=== PATIENT | male | born 1965 | race Caucasian/White ===

== ENCOUNTER 2016-11-18 16:14 | Inpatient (IN) ==
--- NOTE | 2016-11-18 16:17 | Emergency Department Note ---
Disposition Clinical Impression: Upper abdominal pain, History of kidney cancer, Vomiting, Cachexia, Acute renal failure, Ileus, Dehydration Disposition: Admitted As Inpatient Referrals: NO,PCP [Primary Care Provider] - Forms: Work/School Release, ED Satisfaction Letter General Adult HPI - General Chief complaint: ED Abdominal Pain Stated complaint: abdominal pain Time Seen by Provider: 11/18/16 16:16 - History of Present Illness HPI Narrative: 51-year-old male reports emergency department from home via EMS. The patient reports he has severe upper abdominal pain bilaterally. He has a known history of kidney cancer. He has a history of colostomy placement. The patient denies any trauma. He has had a cough but no christiano shortness of breath or chest pain. There is no history of fever leg swelling or pain coughing up blood or syncope. The patient reports he has been vomiting nonbloody material. He describes severe abdominal pain. He reports he has not eaten much or drinking much in the last few days. He feels generally weak. There is no history of difficulty moving the arms or legs independently no history of slurred speech headache neck stiffness or rash. The patient is not known to be anticoagulated or diabetic. No other complaints noted. - Related Data Previous Rx's Medication Instructions Recorded Azithromycin [Zithromax] 1 applic PO DAILY #6 tablet 09/10/16 Benzonatate [Tessalon] 200 mg PO TID PRN #30 capsule 09/10/16 Promethazine [Phenergan] 25 mg PO Q8HR PRN #12 tablet 09/10/16 Allergies Allergy/AdvReac Type Severity Reaction Status Date / Time sulfamethoxazole Allergy Rash Verified 11/18/16 16:16 [From Bactrim] trimethoprim [From Bactrim] Allergy Rash Verified 11/18/16 16:16 All systems ED: reviewed and negative except as stated. Past Medical History - Past Medical History Medical history: Reports: cancer, other Surgical history: Reports: other Psychiatric history: Reports: depression - Social History Smoking Status: Current every day smoker Smokeless Tobacco Status: No Alcohol use: Reports: unknown Drug use: Reports: marijuana Physical Exam - General Limitations: no limitations General appearance: alert, cachectic, other (Tired and Prabha in appearance. Follows basic commands and answers general questions appropriately) - Head Head exam: atraumatic, normocephalic, normal inspection - Eye Eye exam: Present: normal appearance, PERRL, EOMI. Absent: scleral icterus, conjunctival injection, miosis, mydriasis - ENT ENT exam: normal exam, normal oropharynx, mucous membranes moist - Neck Neck exam: Present: normal inspection, full ROM, trachea midline. Absent: tenderness - Chest Chest inspection: Present: symmetric chest wall rise. Absent: tenderness - Respiratory Respiratory exam: Present: normal lung sounds bilaterally. Absent: respiratory distress, wheezes, stridor, accessory muscle use, prolonged expiratory phase - Cardiovascular Cardiovascular exam: Present: regular rate, normal rhythm, normal heart sounds - Abdominal Exam Abdominal exam: Present: soft, tenderness, other (Colostomy bag in place with normal-appearing stool.). Absent: distention, guarding, rebound, rigidity, pulsatile mass Abdominal tenderness: Present: RUQ, LUQ, severe - Extremities Exam Extremities exam: Present: normal inspection, full ROM, normal capillary refill. Absent: tenderness, pedal edema, joint swelling, calf tenderness - Expanded Lower Extremity Exam Lower leg exam: Absent: Homans' sign Neurovascular/Tendon exam: Present: normal capillary refill. Absent: motor deficit, sensory deficit, tendon deficit, extremity cold to touch, pallor - Back Exam Back exam: Present: normal inspection, full ROM. Absent: tenderness, CVA tenderness (R), CVA tenderness (L), vertebral tenderness - Neurological Exam Neurological exam: Present: alert, oriented X3, CN II-XII intact. Absent: motor sensory deficit - Psychiatric Psychiatric exam: Present: normal affect, normal mood - Skin Skin exam: Present: warm, dry, intact, normal color. Absent: rash, cyanosis, diaphoresis, erythema, pallor, mottled Course Vital Signs Temperature 98.1 F 11/18/16 16:17 Pulse Rate 106 11/18/16 16:17 Respiratory Rate 20 11/18/16 16:17 Blood Pressure 110/75 11/18/16 16:17 O2 Sat by Pulse Oximetry 96 11/18/16 16:17 Temperature 98.1 F 11/18/16 16:17 Pulse Rate 85 11/18/16 17:36 Respiratory Rate 20 11/18/16 17:36 Blood Pressure 115/77 11/18/16 17:36 O2 Sat by Pulse Oximetry 98 11/18/16 17:36 Oxygen Delivery Oxygen Delivery Room Air Medical Decision Making - [facility] Narrative Medical decision making narrative: The patient complains of upper abdominal pain and recurrent emesis, EKG unremarkable, troponin negative. Lipase and liver function tests show no emergent changes. The patient demonstrates severe dehydration and acute renal failure. He was given IV fluid antinausea and pain medications. Based on the patient's acute kidney injury, apparent ileus on CT scan, recurrent vomiting, and electrolyte abnormalities, I thought it would be appropriate to admit the patient to the hospital. I discussed the case with the hospitalist on-call who has accepted the patient to their care. - Lab Data Lab results reviewed: Yes I reviewed the patient's lab results. Result diagrams: 11/18/16 17:09 11/18/16 17:09 Lab Results 11/18/16 11/18/16 11/18/16 Range/Units 17:09 17:09 17:09 WBC 7.4 (4.3-11.1) K/mcL RBC 6.31 H (4.19-5.50) M/mcL Hgb 18.4 H (12.9-16.9) g/dL Hct 53.4 H (37.5-50.1) % MCV 84.6 (83.0-100.0) fL MCH 29.2 (28.0-33.3) pg MCHC 34.5 (31.6-35.5) g/dL RDW 13.1 (11.5-14.5) % Plt Count 219 (140-400) K/mcL MPV 10.6 (9.4-12.4) fL Immature Gran % 0.3 (0-4) % Seg Neutrophils % 59.2 % Lymphocytes % 19.1 % Monocytes % 19.9 % Eosinophils % 1.2 % Basophils % 0.3 % Neutrophils # 4.4 (1.6-8.9) K/mcL Lymphocytes # 1.4 (0.6-4.6) K/mcL Monocytes # 1.5 H (0.0-1.3) K/mcL Eosinophils # 0.1 (0.0-0.6) K/mcL Basophils # 0.0 (0.0-0.2) K/mcL PT (9.4-12.1) Seconds INR APTT (26.0-36.0) Seconds Sodium 127 L (136-145) mEq/L Potassium 5.1 H (3.5-4.5) mEq/L Chloride 92 L (98-109) mEq/L Carbon Dioxide 18 L (19-29) mEq/L BUN 48 H (8-26) mg/dL Creatinine 6.03 H (0.72-1.25) mg/dL Est GFR ( Amer) 12 L (> 60) Est GFR (Non-Af Amer) 10 L (> 60) BUN/Creatinine Ratio 8 (6-26) Glucose 105 H (70-99) mg/dL Calculated Osmolality 277 L (280-300) Lactic Acid 1.6 (0.5-2.2) mmol/L Calcium 10.4 (8.6-10.8) mg/dL Total Bilirubin 0.7 (0.2-1.2) mg/dL Direct Bilirubin 0.3 (0.0-0.5) mg/dL Indirect Bilirubin 0.4 (0.0-1.2) mg/dL AST 22 (5-34) Units/L ALT 26 (0-55) Units/L Alkaline Phosphatase 67 (38-126) Units/L Troponin I (0-0.03) ng/mL C-Reactive Protein 47 H (Less than 5) mg/L Serum Total Protein 9.5 H (6.0-8.3) g/dL Albumin 4.4 (3.5-5.0) g/dL Globulin 5.1 H (2.4-3.5) g/dL Albumin/Globulin Ratio 0.9 L (1.1-2.2) Lipase 38 (8-78) Units/L 11/18/16 11/18/16 Range/Units 17:09 17:17 WBC (4.3-11.1) K/mcL RBC (4.19-5.50) M/mcL Hgb (12.9-16.9) g/dL Hct (37.5-50.1) % MCV (83.0-100.0) fL MCH (28.0-33.3) pg MCHC (31.6-35.5) g/dL RDW (11.5-14.5) % Plt Count (140-400) K/mcL MPV (9.4-12.4) fL Immature Gran % (0-4) % Seg Neutrophils % % Lymphocytes % % Monocytes % % Eosinophils % % Basophils % % Neutrophils # (1.6-8.9) K/mcL Lymphocytes # (0.6-4.6) K/mcL Monocytes # (0.0-1.3) K/mcL Eosinophils # (0.0-0.6) K/mcL Basophils # (0.0-0.2) K/mcL PT 11.9 (9.4-12.1) Seconds INR 1.1 APTT 33.6 (26.0-36.0) Seconds Sodium (136-145) mEq/L Potassium (3.5-4.5) mEq/L Chloride (98-109) mEq/L Carbon Dioxide (19-29) mEq/L BUN (8-26) mg/dL Creatinine (0.72-1.25) mg/dL Est GFR ( Amer) (> 60) Est GFR (Non-Af Amer) (> 60) BUN/Creatinine Ratio (6-26) Glucose (70-99) mg/dL Calculated Osmolality (280-300) Lactic Acid (0.5-2.2) mmol/L Calcium (8.6-10.8) mg/dL Total Bilirubin (0.2-1.2) mg/dL Direct Bilirubin (0.0-0.5) mg/dL Indirect Bilirubin (0.0-1.2) mg/dL AST (5-34) Units/L ALT (0-55) Units/L Alkaline Phosphatase (38-126) Units/L Troponin I 0.00 (0-0.03) ng/mL C-Reactive Protein (Less than 5) mg/L Serum Total Protein (6.0-8.3) g/dL Albumin (3.5-5.0) g/dL Globulin (2.4-3.5) g/dL Albumin/Globulin Ratio (1.1-2.2) Lipase (8-78) Units/L - Radiology Data Radiology results reviewed: Yes I reviewed the patient's radiology results.
[2016-11-18] MEDS ORDERED: *HR* HYDROmorphone (PF) 1 MG/ML SYRINGE IVP ONE ×3 (16:45→19:08)
[2016-11-18] MEDS ORDERED: Ondansetron 4 MG/2 ML VIAL IVP ONE ×2 (16:46→17:38)
[2016-11-18] MEDS ORDERED: 0.9 % Sodium Chloride 1,000 ML IVC ONE ×2 (16:46→17:46)
[2016-11-18 17:23] LABS: Basophils % 0.3 %; Eosinophils # 0.1 K/mcL (0.0-0.6); Eosinophils % 1.2 %; Hematocrit 53.4 % (37.5-50.1); Hemoglobin 18.4 g/dL (12.9-16.9); Immature Granulocytes % 0.3 % (0-4); Lymphocytes # 1.4 K/mcL (0.6-4.6); Lymphocytes % 19.1 %; Mean Corpuscular HGB Conc 34.5 g/dL (31.6-35.5); Mean Corpuscular Hemoglobin 29.2 pg (28.0-33.3); Mean Corpuscular Volume 84.6 fL (83.0-100.0); Mean Platelet Volume 10.6 fL (9.4-12.4); Monocytes # 1.5 K/mcL (0.0-1.3); Monocytes % 19.9 %; Neutrophils # 4.4 K/mcL (1.6-8.9); Platelet Count 219 K/mcL (140-400); Red Blood Count 6.31 M/mcL (4.19-5.50); Red Cell Distribution Width 13.1 % (11.5-14.5); Segmented Neutrophils % 59.2 %
[2016-11-18 17:29] LABS: INR 1.1; Prothrombin Time 11.9 Seconds (9.4-12.1)
[2016-11-18 17:32] LABS: Activated Partial Thrombo Time 33.6 Seconds (26.0-36.0)
[2016-11-18 17:38] LABS: Albumin 4.4 g/dL (3.5-5.0); Albumin/Globulin Ratio 0.9 (1.1-2.2); Bilirubin,Direct 0.3 mg/dL (0.0-0.5); Bilirubin,Indirect 0.4 mg/dL (0.0-1.2); Bilirubin,Total 0.7 mg/dL (0.2-1.2); Calcium 10.4 mg/dL (8.6-10.8); Globulin 5.1 g/dL (2.4-3.5); Potassium 5.1 mEq/L (3.5-4.5); Total Protein 9.5 g/dL (6.0-8.3)
--- NOTE | 2016-11-18 21:57 | Internal Med History&Physical ---
Date of Encounter: 11/19/16 Time of Encounter: 21:56 Assessment and Plan (1) Right lower lobe pneumonia Current visit: Yes Status: Acute Patient complains of pleuritic in nature right lower rib cage chest pain. Lung auscultation reveals some fine crackles. He also reports subjective fevers and cough productive of dark-colored sputum. All of this is compatible with clinical pneumonia even though his chest x-ray is clear. I suspect that chest x -ray findings are lagging behind the clinical picture due to profound dehydration and I expect to possibly see an infiltrate once the patient is rehydrated and therefore I will order a repeat chest x-ray in the morning. Plan: We will treat him for community-acquired pneumonia with ceftriaxone and azithromycin. We will obtain blood cultures, urine Legionella and pneumococcal antigens. We will obtain sputum culture as well. We will provide oxygen by nasal cannula as needed. Inhaled albuterol as needed for wheezing or shortness of breath. Qualifiers: Pneumonia type: due to unspecified organism Qualified Code(s): J18.1 - Lobar pneumonia, unspecified organism (2) Ulcerative colitis Current visit: No Status: Chronic We will treat abdominal pain with IV morphine as the patient is nothing by mouth right now. Qualifiers: Ulcerative colitis location: unspecified ulcerative colitis location Digestive disease complication type: without complication Qualified Code(s): K51.90 - Ulcerative colitis, unspecified, without complications (3) Acute renal failure Current visit: Yes Status: Acute The patient has acute kidney injury illustrated by creatinine of 6.03. Per chart review in July 2015 his creatinine was 1.03. DANIELITO likely secondary to profound dehydration, possible ATN. CT of the abdomen and pelvis shows no evidence of hydronephrosis. We will treat him with IV fluids aggressively. Monitor BUN and creatinine. Avoid nephrotoxins. If kidney function does not significantly improve with fluids we will consult nephrology. Qualifiers: Acute renal failure type: unspecified Qualified Code(s): N17.9 - Acute kidney failure, unspecified (4) Ileus Current visit: Yes Status: Acute Possibly in the context of systemic infection and profound dehydration. We will provide supportive care with IV fluids, IV antiemetics, IV analgesics. We will monitor clinically and repeat x-ray in the morning. If the ileus does not improve with conservative measures consider surgical consult. (5) Dehydration Current visit: Yes Status: Acute (6) Tobacco abuse disorder Current visit: Yes Status: Acute (7) DVT prophylaxis Current visit: Yes Status: Acute We will use subcutaneous heparin. Internal Medicine - H&P: HPI Chief complaint: Vomiting Admitted From: Emergency Dept Plans for Post Hospital Care: Home History of present illness: Mr. Schafer is a 51 year old male with past medical history significant for renal cell carcinoma, Crohn's disease status post colectomy and colostomy, chronic kidney disease who presented to the hospital for evaluation of nausea and vomiting. He reports 4 days of right lower rib cage pain which he describes as severe, sharp, worse with inspiration, associated with subjective fevers and cough productive of joshua sputum. He also reports associated nausea and vomiting with each attempt to eat or drink. He reports very minimal oral intake over the last 2 days. He continues to urinate by he noticed that his urine was more concentrated. Workup done in the emergency department and was pertinent for elevated BUN and creatinine. CT of the abdomen and pelvis was consistent with ileus. He was given IV fluids and referred for admission. A 10 point review of systems was negative except as above. Past medical history as above Family history positive for lung cancer in the patient's mother and coronary heart disease in the patient's father suffered with an acute PR at age 60. Past Med Surg Social Fam HX - Past Medical History Medical history: cancer, other Psychiatric history: anxiety, depression - Past Surgical History Surgical History: colectomy, colostomy, other - Social History Smoking Status: Current every day smoker Packs per day: 1 Smokeless Tobacco Status: No Alcohol use: none Drug use: marijuana - Family History Mother Living Status: Hx Family Cancer: Yes (lung) Hx Family Autoimmune Disorders: Yes (lupus) Father Living Status: Hx Family Cardiac Disorders: Yes ([place]) Hx Family Endocrine Disorder: Yes Internal Medicine - H&P: Meds Azithromycin [Zithromax] 1 applic PO DAILY #6 tablet 09/10/16 [Rx] Benzonatate [Tessalon] 200 mg PO TID PRN #30 capsule 09/10/16 [Rx] Promethazine [Phenergan] 25 mg PO Q8HR PRN #12 tablet 09/10/16 [Rx] Allergies sulfamethoxazole [From Bactrim] Allergy (Verified 11/18/16 16:16) Rash trimethoprim [From Bactrim] Allergy (Verified 11/18/16 16:16) Rash All Systems PM: A 10-system review of systems was performed and is negative for pertinent findings except as documented above in the HPI. - Constitutional Vitals: Temp Pulse Resp BP Pulse Ox 98.3 F 76 16 108/66 98 11/18/16 20:22 11/18/16 20:22 11/18/16 20:22 11/18/16 20:22 11/18/16 20:22 General appearance: Present: A&O X 3, severe distress (He is in severe distress due to pain.) - Eye Eye exam: Present: PERRL, conjuntiva pink, sclera anicteric Pupils: Present: PERRL - ENT ENT exam: Present: mucous membranes dry - Neck Neck exam general surgery: Present: supple, trachea midline. Absent: lymphadenopathy - Respiratory Respiratory exam: Present: rales (Right lower lung field rales). Absent: accessory muscle use, rhonchi, wheezes - Cardiovascular Cardiovascular exam: Present: RRR, +S1, +S2. Absent: diastolic murmur, gallop, rubs, systolic murmur - GI/Abdominal GI/Abdominal exam: Present: normal bowel sounds, soft (Left upper quadrant colostomy bag present with fecal matter noticed in the back.), tenderness ( Tender to palpation in the right upper quadrant, no rebound, no guarding), no peritoneal signs. Absent: distended - Extremities Exam Extremities exam: Present: warm, radial pulses palpable and symetrical. Absent : calf tenderness, cyanotic, pedal edema - Neurological Exam Neurological exam: Present: CN II-XII intact, oriented X3, no focal deficits. Absent: pronater drift, facial droop, speech deficit - Skin Skin exam: Present: dry, intact Internal Med - H&P Results - Labs CBC & Chem 7: 11/18/16 17:09 11/18/16 17:09 - Impressions Chest x-ray reviewed by myself shows clear lung preciado, normal heart size, no pleural effusions. CT of the abdomen and pelvis reviewed by myself reveals distended, fluid-filled small bowel loops compatible with ileus.
[2016-11-18] MEDS ORDERED: Acetaminophen 325 MG TABLET PO PRN (22:24)
[2016-11-18] MEDS ORDERED: Naloxone 0.4 MG/ML INJ IVP PRN (22:24)
[2016-11-18 22:28] LABS: Bilirubin,Urine Small (Negative); Blood,Urine Small (Negative); Clarity,Urine Cloudy (Clear); Color,Urine Dark Yellow (Yellow); Glucose,Urine (UA) Normal (Normal); Ketones,Urine Trace mg/dL (Negative); Leukocyte Esterase,Urine Moderate (Negative); Nitrite,Urine Negative (Negative); PH,Urine 5.5 pH Units (5.0-8.0); Protein,Urine 100 mg/dL (Neg-Trace); Specific Gravity,Urine 1.022 (1.010-1.025); Urobilinogen,Urine Normal (Normal)
[2016-11-18 22:29] LABS: Bacteria,Urine None Seen per hpf (None-Few); Squamous Epithelial Cell,Urine Many per lpf (None-Few); WBC,Urine 50-100 per hpf (0-3)
[2016-11-18 22:35] LABS: Amphetamine Screen,Urine Negative ng/mL (Cutoff=1000); Barbiturate Screen,Urine Negative ng/mL (Cutoff=200); Benzodiazepines Screen,Urine Positive ng/mL (Cutoff=200); Cannabinoid Screen,Urine Positive ng/mL (Cutoff = 50); Cocaine Screen,Urine Negative ng/mL (Cutoff= 300); Opiate Screen,Urine Negative ng/mL (Cutoff=300); Phencyclidine Screen,Urine Negative ng/mL (Cutoff=25)
[2016-11-18 22:41] LABS: Hyaline Casts,Urine Few per lpf (None-Few); RBC,Urine 0-3 per hpf (0-3); Yeast,Urine Many per hpf (None Seen)
[2016-11-18] MEDS ORDERED: Temazepam 15 MG CAPSULE PO PRN (22:41)
[2016-11-18] MEDS: *HR* HYDROmorphone (PF) 1 MG/ML SYRINGE IVP PRN (23:07)
[2016-11-18] MEDS: 0.9 % Sodium Chloride 1,000 ML IVC SCH (23:08)
[2016-11-18] MEDS ORDERED: Azithromycin 500 MG in D5% in Water 250 ML IVPB SCH (23:30)
[2016-11-19] MEDS: *HR* HYDROmorphone (PF) 1 MG/ML SYRINGE IVP PRN ×8 (02:09→21:47)
[2016-11-19] MEDS: Ondansetron 4 MG/2 ML VIAL IVP PRN ×2 (02:10→10:06)
[2016-11-19] MEDS: *HR* Heparin 5,000 UNIT/ML VIAL SQ SCH ×2 (04:59→18:37)
[2016-11-19] MEDS: 0.9 % Sodium Chloride 1,000 ML IVC SCH ×4 (05:00→21:47)
[2016-11-19 05:07] LABS: Basophils % 0.3 %; Eosinophils # 0.2 K/mcL (0.0-0.6); Eosinophils % 2.5 %; Hematocrit 40.7 % (37.5-50.1); Immature Granulocytes % 0.2 % (0-4); Lymphocytes # 1.7 K/mcL (0.6-4.6); Lymphocytes % 28.2 %; Mean Corpuscular HGB Conc 34.9 g/dL (31.6-35.5); Mean Corpuscular Hemoglobin 29.3 pg (28.0-33.3); Mean Corpuscular Volume 84.1 fL (83.0-100.0); Mean Platelet Volume 10.2 fL (9.4-12.4); Monocytes # 1.3 K/mcL (0.0-1.3); Monocytes % 22.1 %; Neutrophils # 2.8 K/mcL (1.6-8.9); Platelet Count 180 K/mcL (140-400); Red Blood Count 4.84 M/mcL (4.19-5.50); Red Cell Distribution Width 13.2 % (11.5-14.5); Segmented Neutrophils % 46.7 %
[2016-11-19 05:20] LABS: Magnesium 1.8 mg/dL (1.6-2.6)
[2016-11-19 05:26] LABS: Calcium 8.2 mg/dL (8.6-10.8); Potassium 3.8 mEq/L (3.5-4.5)
[2016-11-19 05:29] LABS: Hemoglobin 14.2 g/dL (12.9-16.9)
[2016-11-19 05:32] LABS: Platelet Estimate Normal (Normal); Reactive Lymphocytes Present (Not Present)
[2016-11-19] MEDS: Pantoprazole 40 MG VIAL IVP SCH (07:46)
[2016-11-19] MEDS: Nicotine 21 MG PATCH.TD24 TD SCH (07:47)
[2016-11-19] MEDS ORDERED: *HR* Promethazine 25 MG/ML VIAL IVP PRN (11:18)
[2016-11-19] MEDS ORDERED: 0.9 % Sodium Chloride 1,000 ML ONE (13:30)
--- NOTE | 2016-11-19 14:53 | Internal Med Progress Note ---
Date of Encounter: 11/19/16 Time of Encounter: 11:50 - Assessment and plan (1) Acute renal failure Current Visit: Yes Status: Acute Assessment and plan: His renal function is now improving. BUN is 44 with creatinine of 3.18. Patient having good urine output. Will follow renal function. Continue IV hydration. High risk for complications. Qualifiers: Acute renal failure type: with acute tubular necrosis Qualified Code(s): N17.0 - Acute kidney failure with tubular necrosis (2) Dehydration Current Visit: Yes Status: Acute (3) Ileus Current Visit: Yes Status: Acute Assessment and plan: KUB x-ray done today shows mild ileus. Patient does have fecal matter in his colostomy bag. We will continue bowel rest. Continue supportive care with antinausea medications and pain medications (4) Right lower lobe pneumonia Current Visit: Yes Status: Ruled-out Assessment and plan: Chest x-ray done today does not show any infiltrate. Patient does not appear to be having a pneumonia at this time. We will de-escalate antibiotics. Qualifiers: Pneumonia type: due to unspecified organism Qualified Code(s): J18.1 - Lobar pneumonia, unspecified organism (5) Tobacco abuse disorder Current Visit: Yes Status: Chronic Assessment and plan: continue nicotine patch (6) Ulcerative colitis Current Visit: Yes Status: Chronic Assessment and plan: Worsening abdominal pain. Currently nothing by mouth. Continue IV hydration. IV narcotic pain medications for pain control. Qualifiers: Ulcerative colitis location: unspecified ulcerative colitis location Digestive disease complication type: without complication Qualified Code(s): K51.90 - Ulcerative colitis, unspecified, without complications (7) UTI (urinary tract infection) Current Visit: Yes Status: Acute Assessment and plan: Treating patient for possible acute urinary tract infection/cystitis while awaiting cultures. Leukocytosis has resolved. Continue IV ceftriaxone for now. Qualifiers: Urinary tract infection type: acute cystitis Hematuria presence: with hematuria Qualified Code(s): N30.01 - Acute cystitis with hematuria - Subjective Interval history: Complaints of abdominal pain along with nausea and severe back pain. Continues to also have right lower rib cage pain. Able to tolerate some clear liquids. No fever or chills overnight. - Constitutional Vitals: Temp Pulse Resp BP Pulse Ox 98.0 F 65 14 119/72 97 11/19/16 10:38 11/19/16 10:38 11/19/16 10:38 11/19/16 10:38 11/19/16 10:38 General appearance: Present: A&O X 3, severe distress (Due to pain), underweight , answers questions appropriately - Respiratory Respiratory exam: Present: CTAB. Absent: accessory muscle use, rales, rhonchi, wheezes - GI/Abdominal GI/Abdominal exam: Present: normal bowel sounds, soft, tenderness (Generalized abdominal tenderness. Colostomy bag in place with fecal matter), no peritoneal signs. Absent: distended - Extremities Exam Extremities exam: Present: warm, radial pulses palpable and symetrical. Absent : calf tenderness, cyanotic, pedal edema - Neurological Exam Neurological exam: Present: alert, oriented X3, no focal deficits. Absent: facial droop, speech deficit - Skin Skin exam: Present: dry, intact Internal Medicine: Result - Labs CBC & Chem 7: 11/19/16 04:30 11/19/16 04:30 Labs: Short CBC 11/19/16 Range/Units 04:30 WBC 6.0 (4.3-11.1) K/mcL Hgb 14.2 D (12.9-16.9) g/dL Hct 40.7 (37.5-50.1) % Plt Count 180 (140-400) K/mcL Neutrophils # 2.8 (1.6-8.9) K/mcL BMP 11/19/16 04:30 Sodium 131 L Potassium 3.8 D Chloride 102 Carbon Dioxide 21 BUN 44 H Creatinine 3.18 H Glucose 92 Calcium 8.2 L D Cardiac Enzymes 11/18/16 11/19/16 Range/Units 22:57 04:30 Troponin I 0.00 0.00 (0-0.03) ng/mL - ABG Interpretation ABG results: PT/INR, D-dimer PT 11.9 Seconds (9.4-12.1) 11/18/16 17:17 - Impressions Impressions Chest X-Ray 11/19/16 06:00 IMPRESSION: No evidence of acute cardiopulmonary disease. D/ / 11/19/2016 07:32:04 Aaron Randolph MD / [place] Interpreting Provider: Aaron Randolph MD KUB X-Ray 11/19/16 06:00 IMPRESSION: Mildly distended loops of bowel in the pelvis and right lower quadrant which may reflect ileus given the clinical history and CT appearance. Status post colectomy. D/ / 11/19/2016 07:21:43 Aaron Randolph MD / [place] Interpreting Provider: Aaron Randolph MD Consult Discharge Plan - Plan Referrals: NO,PCP [Primary Care Provider] - - Attending Attestation This document has been at least partially created by [employer] recognition technology by Dr. Hawkins. Errors in grammar, wording or other phrases may exist. If errors are found after the documentation is signed, they will be addressed individually in the addendum section of this document when appropriate.
--- NOTE | 2016-11-19 15:20 | Nephrology Consult Note ---
Date of Encounter: 11/19/16 Time of Encounter: 12:15 Assessment and Plan (1) Acute kidney injury Status: Resolved Elevated SCr in the setting of nausea and vomiting with decrease po intake and ileostomy Agree with aggressive volume repletion No acute indication for DISC P[employer]ATE [employer] at this time Will check uric acid and cok levels Will check urine for sodium, eosinophil and creatinine Avoid nephrotoxins if possible (2) Hyponatremia Status: Resolved Improving with saline, will continue (3) Hyperkalemia Status: Acute Potassium resolved History of Present Illness - Reason for Consult Consult date: 11/19/16 Acute Kidney Injury Requesting physician: Jed Sanchez - History of Present Illness 51 y o male with PMH of 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 Scr noted elevated from baseline at 6.0, GFR 10 decreasing to 3.18, GFR 21, baseline at 1.03, GFR >60 as of 07/2015. potassium also noted 5.1 improving to 3.8 and sodium from 127 to 131 with aggressive volume repletion. He reports decreased po intake overall for at least the past week. No NSAIDs use. He has not been to any doctors including pcp or urology in the past 2 years at least. Past Med Surg Social Fam HX - Past Medical History Medical history: cancer, other Psychiatric history: anxiety, depression - Past Surgical History Surgical History: colectomy, colostomy, other - Social History Smoking Status: Current every day smoker Packs per day: 1 Smokeless Tobacco Status: No Alcohol use: none Drug use: marijuana - Family History Mother Living Status: Hx Family Cancer: Yes (lung) Hx Family Autoimmune Disorders: Yes (lupus) Father Living Status: Hx Family Cardiac Disorders: Yes ([place]) Hx Family Endocrine Disorder: Yes Medications and Allergies Pregabalin [Lyrica] 100 mg PO BID 11/19/16 [History] Oxycodone HCl/Acetaminophen [Endocet 5-325 Tablet] 1 each PO Q6H PRN #14 tablet 11/20/16 [Rx] Promethazine Syrup [Phenergan Syrup] 12.5 mg PO Q4HR PRN #250 mls 11/20/16 [Rx] Allergies sulfamethoxazole [From Bactrim] Allergy (Verified 11/18/16 16:16) Rash trimethoprim [From Bactrim] Allergy (Verified 11/18/16 16:16) Rash Review of Systems All Systems: reviewed and no additional remarkable complaints except as stated ( 10 system reviewed) Exam - Vital Signs Vital signs: Initial Vital Signs Temp Pulse Resp BP Pulse Ox 98.1 F 106 20 110/75 96 11/18/16 16:17 11/18/16 16:17 11/18/16 16:17 11/18/16 16:17 11/18/16 16:17 Vital Signs - Last 8 Hours Temp Pulse Resp BP Pulse Ox 11/19/16 15:10 97.6 F 67 14 120/70 100 11/19/16 10:38 98.0 F 65 14 119/72 97 Intake and Output 11/18/16 11/19/16 11/19/16 23:59 07:59 15:59 Intake Total 1350 / 1350 1000 / 1000 Balance 1350 / 1350 1000 / 1000 Intake: IV Fluids 1350 / 1350 1000 / 1000 0.9 % Sodium Chloride 1, 1000 / 1000 1000 / 1000 000 ML @ 250 mls/hr IVC . Q4H [facility] Rx#:[id number] Zithromax 500 mg In 250 / 250 Dextrose 5% 250 ML @ 252 mls/hr IVPB Q24H [facility] Rx#: [id number] Rocephin 1,000 MG In 100 / 100 Dextrose 5% (Minibag+) 100 ML 100 ML @ 200 mls/ hr IVPB Q24H [facility] Rx#: [id number] Oral 0 / 0 Other: Meal NPO Percent of Meal Consumed 0% - General Appearance General appearance: frail (Mild distress, tearful) EENT: ATNC, mucous membranes dry Neck: no JVD, supple Respiratory: clear Cardiology: no edema, normal S1, normal S2 Gastrointestinal: no tenderness, no guarding Additional Comments: +ostomy bag Integumentary: no rash, warm and dry Neurologic: no focal deficit Musculoskeletal: no deformities Psychiatric: mood/affect appropriate, cooperative Results - Lab Results 11/20/16 05:03 11/20/16 06:06 Most recent lab results Calcium 8.2 mg/dL (8.6-10.8) L D 11/19/16 04:30 Magnesium 1.8 mg/dL (1.6-2.6) 11/19/16 04:30 Consult Discharge Plan - Plan Instructions: Acute Kidney Injury (DC), Urinary Tract Infection in Men (DC) Additional Instructions: Follow-up with nephrology in 1-2 weeks Referrals: NO,PCP [Primary Care Provider] - (Follow-up with PCP in 1-2 weeks. It is very important that you find a primary care provider and follow closely for her multiple medical problems including inflammatory bowel disease) Prescriptions: Promethazine Syrup [Phenergan Syrup] 12.5 mg PO Q4HR PRN #250 mls PRN Reason: nausea Oxycodone HCl/Acetaminophen [Endocet 5-325 Tablet] 1 each PO Q6H PRN #14 tablet PRN Reason: severe pain
[2016-11-19 17:30] LABS: Uric Acid 7.5 mg/dL (3.5-7.2)
[2016-11-19 18:46] LABS: Creatinine,Urine 167 mg/dL
[2016-11-19 18:49] LABS: Sodium, Urine < 20.0 mEq/L
[2016-11-20] MEDS: *HR* HYDROmorphone (PF) 1 MG/ML SYRINGE IVP PRN ×3 (01:11→08:18)
[2016-11-20 05:27] LABS: Hematocrit 34.1 % (37.5-50.1); Immature Granulocytes % 3.1 % (0-4); Lymphocytes % 46.9 %; Mean Corpuscular Hemoglobin 29.4 pg (28.0-33.3); Mean Corpuscular Volume 86.3 fL (83.0-100.0); Mean Platelet Volume 10.7 fL (9.4-12.4); Monocytes % 11.2 %; Platelet Count 108 K/mcL (140-400); Red Blood Count 3.95 M/mcL (4.19-5.50); Red Cell Distribution Width 13.1 % (11.5-14.5); Segmented Neutrophils % 35.7 %
[2016-11-20 05:28] LABS: Basophils % 0.7 %; Eosinophils # 0.1 K/mcL (0.0-0.6); Eosinophils % 2.4 %; Hemoglobin 11.6 g/dL (12.9-16.9); Lymphocytes # 1.4 K/mcL (0.6-4.6); Monocytes # 0.3 K/mcL (0.0-1.3)
[2016-11-20] MEDS: *HR* Heparin 5,000 UNIT/ML VIAL SQ SCH (05:41)
[2016-11-20] MEDS: 0.9 % Sodium Chloride 1,000 ML IVC SCH (05:41)
[2016-11-20 07:09] LABS: BUN/Creatinine Ratio 24 (6-26); Calcium 8.2 mg/dL (8.6-10.8); Carbon Dioxide 17 mEq/L (19-29); Chloride 113 mEq/L (98-109); Glucose 81 mg/dL (70-99); Osmolality,Calculated 291 (280-300); Potassium 4.2 mEq/L (3.5-4.5); Sodium 138 mEq/L (136-145); eGFR For African Americans > 60 (> 60); eGFR For Non-African Americans > 60 (> 60)
[2016-11-20 07:14] LABS: Blood Urea Nitrogen 28 mg/dL (8-26)
[2016-11-20] MEDS: Nicotine 21 MG PATCH.TD24 TD SCH (08:17)
[2016-11-20] MEDS: Pantoprazole 40 MG VIAL IVP SCH (08:18)
[2016-11-20] MEDS: Ondansetron 4 MG/2 ML VIAL IVP PRN (08:21)
--- NOTE | 2016-11-20 10:40 | Discharge Summary ---
Date of Encounter: 11/20/16 Time of Encounter: 10:38 - Discharge Diagnosis (1) Acute renal failure Priority: Primary Status: Acute Qualifiers: Acute renal failure type: with acute tubular necrosis Qualified Code(s): N17.0 - Acute kidney failure with tubular necrosis (2) Dehydration Priority: Secondary Status: Acute (3) Ileus Priority: Secondary Status: Resolved (4) Right lower lobe pneumonia Priority: Secondary Status: Ruled-out Qualifiers: Pneumonia type: due to unspecified organism Qualified Code(s): J18.1 - Lobar pneumonia, unspecified organism (5) Tobacco abuse disorder Priority: Secondary Status: Chronic (6) Ulcerative colitis Priority: Secondary Status: Suspected Qualifiers: Ulcerative colitis location: unspecified ulcerative colitis location Digestive disease complication type: without complication Qualified Code(s): K51.90 - Ulcerative colitis, unspecified, without complications (7) UTI (urinary tract infection) Priority: Secondary Status: Acute Qualifiers: Urinary tract infection type: acute cystitis Hematuria presence: with hematuria Qualified Code(s): N30.01 - Acute cystitis with hematuria (8) Crohn's disease of intestine Priority: Secondary Status: Acute Qualifiers: Digestive disease complication type: other complication Qualified Code(s): K50.918 - Crohn's disease, unspecified, with other complication - Discharge Medications Prescriptions: Promethazine Syrup [Phenergan Syrup] 12.5 mg PO Q4HR PRN #250 mls PRN Reason: nausea Oxycodone HCl/Acetaminophen [Endocet 5-325 Tablet] 1 each PO Q6H PRN #14 tablet PRN Reason: severe pain Home Medications: Pregabalin [Lyrica] 100 mg PO BID 11/19/16 [History] Oxycodone HCl/Acetaminophen [Endocet 5-325 Tablet] 1 each PO Q6H PRN #14 tablet 11/20/16 [Rx] Promethazine Syrup [Phenergan Syrup] 12.5 mg PO Q4HR PRN #250 mls 11/20/16 [Rx] Allergies/Adverse Reactions: Allergies sulfamethoxazole [From Bactrim] Allergy (Verified 11/18/16 16:16) Rash trimethoprim [From Bactrim] Allergy (Verified 11/18/16 16:16) Rash Date of admission: 11/18/16 22:24 Primary care physician: PCP NO Consults: 11/18/16 21:45 Consult to Nutrition [CONS] Routine Comment: Consulting Provider: NUTRITION Reason for Dietary Consult: Diet Education 11/18/16 22:31 Consult to Physician [CONS] Routine Consulting Provider: Philippe Kirby Reason for Consult: Acute renal failure Call Completed: No Discharging clinician: Jayy Hawkins Anticipated date of discharge: 11/20/16 - Patient Status Disposition: Home, Self-Care Condition: Good Functional capacity at discharge: independent ambulation Overall status at discharge: patient is back to baseline - Discharge Instructions Instructions: Acute Kidney Injury (DC) Follow Up With: NO,PCP [Primary Care Provider] - (Follow-up with PCP in 1-2 weeks. It is very important that you find a primary care provider and follow closely for her multiple medical problems including inflammatory bowel disease) Additional Instructions: Follow-up with nephrology in 1-2 weeks - Diet and Activity Activity: increase activity as tolerated Diet: advance to your usual diet Hospital course: Mr. Schafer is a 51 year old male patient with a history of inflammatory bowel disease which he says is Crohn's disease but on records has been documented as ulcerative colitis status post colectomy and ileostomy presented to the ER with complaints of worsening abdominal pain, generalized weakness along with nausea and vomiting. He was found to have severe renal failure with BUN of 48 and creatinine of 6.03, along with potassium of 5.1. This is believed to be due to dehydration and persistent nausea and vomiting. He was treated with IV fluids with improvement in his renal function much earlier than expected. His creatinine now is normal at 1.19. He is making more urine and is feeling much better. He is also tolerating diet well and keeping his food down. He was also found to have ileus on presentation but he is having more output into his colostomy bag and this seems to be resolving also. Patient is not having any further vomiting and his pain is also improving. He is stable for discharge at this time. He will follow-up with his primary care provider after discharge. I will also refer him to nephrology for follow-up to make sure his renal function remained stable. He does not appear to be having a flareup of his inflammatory bowel disease at this time. The patient also has a history of renal cell carcinoma for which she underwent partial nephrectomy on the right side. Patient has had a stable small exophytic but hypoattenuating focus on the right kidney which is stable from before. Patient will be discharged home today. He is advised to drink plenty of fluids and keeping himself well hydrated. - Time Spent with Patient Total time spent providing and/or coordinating discharge services: Less than 30 minutes (25 min) - Constitutional Vitals: Temp Pulse Resp BP Pulse Ox 98.1 F 73 14 127/63 97 11/20/16 07:47 11/20/16 07:47 11/20/16 07:47 11/20/16 07:47 11/20/16 07:47 General appearance: Present: mild distress, A&O X 3, underweight, answers questions appropriately - Respiratory Respiratory exam: Present: CTAB. Absent: accessory muscle use, rales, rhonchi, wheezes - Cardiovascular Cardiovascular exam: Present: RRR, +S1, +S2. Absent: diastolic murmur, gallop, rubs, systolic murmur - GI/Abdominal GI/Abdominal exam: Present: normal bowel sounds, soft, no peritoneal signs. Absent: distended, tenderness - Extremities Exam Extremities exam: Present: warm, radial pulses palpable and symetrical. Absent : calf tenderness, cyanotic, pedal edema - Attending Attestation This document has been at least partially created by [employer] recognition technology by Dr. Hawkins. Errors in grammar, wording or other phrases may exist. If errors are found after the documentation is signed, they will be addressed individually in the addendum section of this document when appropriate.
[2016-11-20] MEDS ORDERED: *HR* OxyCODONE/APAP 5/325 TABLET PO PRN (10:56)
[2016-11-20 11:35] VITALS: BP 148/79
--- NOTE | 2016-11-21 17:19 | Electrocardiograph Report ---
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
== END 2016-11-20 12:28 | disposition home or self-care (01) | DRG 469 ==
LOC: EMEROO 16:14 → 2ANU 16:14 → SUATTDRO 22:24 → 2ANU 11-19 23:11
PROVIDERS: ADMIT Internal Medicine; ATTEND Internal Medicine

== ENCOUNTER 2017-12-18 14:13 | Observation (INO) ==
[2017-12-18 15:19] LABS: ABG Base Excess -1 mEq/L (-2 to 3); ABG HCO3 24 mEq/L (21-27); ABG Oxygen Saturation 94 % (95-98); ABG PCO2 43 mmHg (35-45); ABG PH 7.36 pH Units (7.32-7.45); ABG PO2 73 mmHg (85-104); ABG TCO2 26 mEq/L (20-26)
[2017-12-18 15:29] LABS: Hemoglobin 11.4 g/dL (12.9-16.9); Mean Corpuscular HGB Conc 34.5 g/dL (31.6-35.5); Mean Corpuscular Hemoglobin 30.4 pg (28.0-33.3); Mean Platelet Volume 9.7 fL (9.4-12.4); Platelet Count 115 K/mcL (140-400); Red Blood Count 3.75 M/mcL (4.19-5.50); Red Cell Distribution Width 13.4 % (11.5-14.5)
[2017-12-18 15:38] LABS: INR 1.3; Prothrombin Time 14.3 Seconds (9.4-12.1)
[2017-12-18 15:41] LABS: Activated Partial Thrombo Time 35.9 Seconds (26.0-36.0)
[2017-12-18 15:53] LABS: Alanine Aminotransferase 29 Units/L (7-52); Albumin 3.6 g/dL (3.5-5.7); Albumin/Globulin Ratio 1.4 (1.1-2.2); Alkaline Phosphatase 54 Units/L (34-104); Aspartate Amino Transferase 32 Units/L (13-39); BUN/Creatinine Ratio 14 (6-26); Bilirubin,Total 0.7 mg/dL (0.3-1.0); Blood Urea Nitrogen 20 mg/dL (6-20); Calcium 8.8 mg/dL (8.6-10.3); Carbon Dioxide 25 mEq/L (23-29); Chloride 103 mEq/L (98-107); Creatine Kinase 271 Units/L (30-223); Ethanol < 10 mg/dL (Less than 10); Globulin 2.5 g/dL (2.4-3.5); Glucose 106 mg/dL (70-105); Lipase 9 Units/L (11-82); Osmolality,Calculated 277 (280-300); Potassium 3.5 mEq/L (3.5-5.1); Sodium 132 mEq/L (136-145); Total Protein 6.1 g/dL (6.4-8.9); eGFR For African Americans > 60 (> 60); eGFR For Non-African Americans 53 (> 60)
[2017-12-18] MEDS: 0.9 % Sodium Chloride 1,000 ML IVC SCH ×4 (15:57→22:27)
[2017-12-18 16:00] LABS: Bilirubin,Urine Negative (Negative); Blood,Urine Negative (Negative); Clarity,Urine Clear (Clear); Color,Urine Dark Yellow (Yellow); Glucose,Urine (UA) Normal (Normal); Ketones,Urine Trace mg/dL (Negative); Leukocyte Esterase,Urine Small (Negative); Nitrite,Urine Negative (Negative); Protein,Urine 30 mg/dL (Neg-Trace); Specific Gravity,Urine 1.026 (1.010-1.025); Urobilinogen,Urine Normal (Normal)
[2017-12-18 16:02] LABS: Bacteria,Urine None Seen per hpf (None-Few); Hyaline Casts,Urine Few per lpf (None-Few); RBC,Urine 0-3 per hpf (0-3); Squamous Epithelial Cell,Urine Many per lpf (None-Few)
[2017-12-18 16:39] LABS: Amphetamine Screen,Urine Positive ng/mL (Cutoff=1000); Barbiturate Screen,Urine Negative ng/mL (Cutoff=200); Benzodiazepines Screen,Urine Positive ng/mL (Cutoff=200); Cannabinoid Screen,Urine Positive ng/mL (Cutoff = 50); Cocaine Screen,Urine Positive ng/mL (Cutoff= 300); Opiate Screen,Urine Negative ng/mL (Cutoff=300); Phencyclidine Screen,Urine Negative ng/mL (Cutoff=25)
--- NOTE | 2017-12-18 17:42 | Emergency Department Note ---
Disposition Clinical Impression: Altered mental status Disposition: Admitted As Inpatient Referrals: NONE,PCP [Primary Care Provider] - Forms: ED Satisfaction Letter General Adult HPI - General Chief complaint: ED Weakness Stated complaint: dehydrated Time Seen by Provider: 12/18/17 14:15 Source: patient Limitations: no limitations - History of Present Illness HPI Narrative: This 52-year-old male was brought in by squad. He reportedly was riding his bicycle and sounded like he may have had a syncopal episode. This patient has a history of metastatic renal cancer according to the history I was given but he is a very poor historian on arrival. He is profoundly altered with respect to his mental status. He mumbles a little bit but most of his speech is incomprehensible. His respirations appear to be adequate and he has an acceptable blood glucose. History is very limited. Largely obtained from the medics and the old record. Pain Scale: 0 - Related Data Home Medications Medication Instructions Recorded Confirmed Unable To Obtain [Unable to Obtain] 12/18/17 12/18/17 Allergies Allergy/AdvReac Type Severity Reaction Status Date / Time sulfamethoxazole Allergy Rash Verified 11/18/16 16:16 [From Bactrim] trimethoprim [From Bactrim] Allergy Rash Verified 11/18/16 16:16 Limitations: ROS unobtainable due to patients medical condition Past Medical History - Past Medical History Medical history: Reports: other Surgical history: Reports: colectomy, colostomy, other Psychiatric history: Reports: anxiety, depression - Social History Smoking Status: Current every day smoker Smokeless Tobacco Status: No Alcohol use: Reports: none Drug use: Reports: marijuana Physical Exam - General Limitations: no limitations General appearance: cachectic, other (Chronically ill-appearing) - Eye Eye exam: Present: PERRL, EOMI - ENT ENT exam: mucous membranes dry - Neck Neck exam: Present: trachea midline - Respiratory Respiratory exam: Absent: respiratory distress, wheezes - Cardiovascular Cardiovascular exam: Present: regular rate, normal rhythm - Abdominal Exam Abdominal exam: Present: soft - Extremities Exam Extremities exam: Present: other (2/4 DP and PT pulses b/l ). Absent: pedal edema - Neurological Exam Neurological exam: Present: other (The patient awakened spontaneously but his speech is very difficult to understand. He is very mildly falls asleep easily. He is not able to follow commands. He is largely unintelligible.) - Skin Skin exam: Present: dry Course Course Narrative: This patient initially arrived with a fever on with his history of cancer there is concern for potential sepsis however his lactate is not elevated. He does have that fever. But did not appear to have an obvious source. His urine is marginally positive. However we had a surprise on his urine drug screen which is positive for multiple substances including cocaine and benzodiazepines amphetamines and narcotics, possibly other substances on board as well although negative for alcohol. So he may improve as the substances start to wear off. He will clearly still need to be admitted. I discussed the case with the hospitalist to arrange for admission. No evidence of pneumonia on his chest x- ray no acute findings were reported on the CT scan of the head. Vital Signs Temperature 102.3 F H 12/18/17 14:23 Pulse Rate 88 12/18/17 14:23 Respiratory Rate 22 12/18/17 14:23 Blood Pressure 109/88 12/18/17 14:23 O2 Sat by Pulse Oximetry 93 12/18/17 14:23 Temperature 102.3 F H 12/18/17 14:23 Pulse Rate 64 12/18/17 17:37 Respiratory Rate 16 12/18/17 17:37 Blood Pressure 118/66 12/18/17 17:37 O2 Sat by Pulse Oximetry 97 12/18/17 17:37 Oxygen Delivery Oxygen Delivery Room Air Medical Decision Making - Medical Records Medical records reviewed: Yes I reviewed the patient's medical records. - Lab Data Lab results reviewed: Yes I reviewed the patient's lab results. Result diagrams: 12/18/17 15:15 12/18/17 15:15 Lab Results 12/18/17 12/18/17 12/18/17 Range/Units 15:15 15:15 15:15 WBC 11.1 (4.3-11.1) K/mcL RBC 3.75 L (4.19-5.50) M/mcL Hgb 11.4 L (12.9-16.9) g/dL Hct 33.0 L (37.5-50.1) % MCV 88.0 (83.0-100.0) fL MCH 30.4 (28.0-33.3) pg MCHC 34.5 (31.6-35.5) g/dL RDW 13.4 (11.5-14.5) % Plt Count 115 L (140-400) K/mcL MPV 9.7 (9.4-12.4) fL PT (9.4-12.1) Seconds INR APTT (26.0-36.0) Seconds Sample Site ABG pH (7.32-7.45) pH Units ABG pCO2 (35-45) mmHg ABG pO2 (85-104) mmHg ABG HCO3 (21-27) mEq/L ABG Total CO2 (20-26) mEq/L ABG O2 Saturation (95-98) % ABG Base Excess (-2 to 3) mEq/L Danny Test O2 Delivery Device Inspired O2 (1-15=lpm [id number]=%) Sodium 132 L (136-145) mEq/L Potassium 3.5 (3.5-5.1) mEq/L Chloride 103 (98-107) mEq/L Carbon Dioxide 25 (23-29) mEq/L BUN 20 (6-20) mg/dL Creatinine 1.41 H (0.70-1.30) mg/dL Est GFR ( Amer) > 60 (> 60) Est GFR (Non-Af Amer) 53 L (> 60) BUN/Creatinine Ratio 14 (6-26) Glucose 106 H (70-105) mg/dL Calculated Osmolality 277 L (280-300) Lactic Acid (0.5-2.2) mmol/L Calcium 8.8 (8.6-10.3) mg/dL Total Bilirubin 0.7 (0.3-1.0) mg/dL AST 32 (13-39) Units/L ALT 29 (7-52) Units/L Alkaline Phosphatase 54 (34-104) Units/L Ammonia (16-53) mcmol/L Creatine Kinase 271 H (30-223) Units/L Serum Total Protein 6.1 L (6.4-8.9) g/dL Albumin 3.6 (3.5-5.7) g/dL Globulin 2.5 (2.4-3.5) g/dL Albumin/Globulin Ratio 1.4 (1.1-2.2) Lipase 9 L (11-82) Units/L Beta-Hydroxybutyric Acd 0.19 (0.02-0.27) mmol/L Urine Color (Yellow) Urine Clarity (Clear) Urine pH (5.0-8.0) pH Units Ur Specific [place] (1.010-1.025) Urine Protein (Neg-Trace) mg/dL Urine Glucose (UA) (Normal) mg/dL Urine Ketones (Negative) mg/dL Urine Blood (Negative) Urine Nitrite (Negative) Urine Bilirubin (Negative) Urine Urobilinogen (Normal) mg/dL Ur Leukocyte Esterase (Negative) Urine Microscopic RBC (0-3) per hpf Urine Microscopic WBC (0-3) per hpf Ur Squamous Epith Cells (None-Few) per lpf Urine Bacteria (None-Few) per hpf Hyaline Casts (None-Few) per lpf Ur Culture Indicated? (NO) Urine Opiates Screen (Wyvbwy=238) ng/mL Ur Barbiturates Screen (Hnkyry=290) ng/mL Ur Phencyclidine Scrn (Cutoff=25) ng/mL Ur Amphetamines Screen (Ajofkj=8407) ng/mL U Benzodiazepines Scrn (Ydilog=701) ng/mL Urine Cocaine Screen (Cutoff= 300) ng/mL U Marijuana (THC) Screen (Cutoff = 50) ng/mL Ur Drug Screen Interp Ethyl Alcohol < 10 (Less than 10) mg/dL 12/18/17 12/18/17 12/18/17 Range/Units 15:15 15:15 15:15 WBC (4.3-11.1) K/mcL RBC (4.19-5.50) M/mcL Hgb (12.9-16.9) g/dL Hct (37.5-50.1) % MCV (83.0-100.0) fL MCH (28.0-33.3) pg MCHC (31.6-35.5) g/dL RDW (11.5-14.5) % Plt Count (140-400) K/mcL MPV (9.4-12.4) fL PT 14.3 H (9.4-12.1) Seconds INR 1.3 APTT 35.9 (26.0-36.0) Seconds Sample Site ABG pH (7.32-7.45) pH Units ABG pCO2 (35-45) mmHg ABG pO2 (85-104) mmHg ABG HCO3 (21-27) mEq/L ABG Total CO2 (20-26) mEq/L ABG O2 Saturation (95-98) % ABG Base Excess (-2 to 3) mEq/L Danny Test O2 Delivery Device Inspired O2 (1-15=lpm [id number]=%) Sodium (136-145) mEq/L Potassium (3.5-5.1) mEq/L Chloride (98-107) mEq/L Carbon Dioxide (23-29) mEq/L BUN (6-20) mg/dL Creatinine (0.70-1.30) mg/dL Est GFR ( Amer) (> 60) Est GFR (Non-Af Amer) (> 60) BUN/Creatinine Ratio (6-26) Glucose (70-105) mg/dL Calculated Osmolality (280-300) Lactic Acid 0.6 (0.5-2.2) mmol/L Calcium (8.6-10.3) mg/dL Total Bilirubin (0.3-1.0) mg/dL AST (13-39) Units/L ALT (7-52) Units/L Alkaline Phosphatase (34-104) Units/L Ammonia 34 (16-53) mcmol/L Creatine Kinase (30-223) Units/L Serum Total Protein (6.4-8.9) g/dL Albumin (3.5-5.7) g/dL Globulin (2.4-3.5) g/dL Albumin/Globulin Ratio (1.1-2.2) Lipase (11-82) Units/L Beta-Hydroxybutyric Acd (0.02-0.27) mmol/L Urine Color (Yellow) Urine Clarity (Clear) Urine pH (5.0-8.0) pH Units Ur Specific [place] (1.010-1.025) Urine Protein (Neg-Trace) mg/dL Urine Glucose (UA) (Normal) mg/dL Urine Ketones (Negative) mg/dL Urine Blood (Negative) Urine Nitrite (Negative) Urine Bilirubin (Negative) Urine Urobilinogen (Normal) mg/dL Ur Leukocyte Esterase (Negative) Urine Microscopic RBC (0-3) per hpf Urine Microscopic WBC (0-3) per hpf Ur Squamous Epith Cells (None-Few) per lpf Urine Bacteria (None-Few) per hpf Hyaline Casts (None-Few) per lpf Ur Culture Indicated? (NO) Urine Opiates Screen (Mwdpgj=130) ng/mL Ur Barbiturates Screen (Tjicxx=421) ng/mL Ur Phencyclidine Scrn (Cutoff=25) ng/mL Ur Amphetamines Screen (Odryug=6429) ng/mL U Benzodiazepines Scrn (Ohosyb=444) ng/mL Urine Cocaine Screen (Cutoff= 300) ng/mL U Marijuana (THC) Screen (Cutoff = 50) ng/mL Ur Drug Screen Interp Ethyl Alcohol (Less than 10) mg/dL 12/18/17 12/18/17 12/18/17 Range/Units 15:16 15:50 15:50 WBC (4.3-11.1) K/mcL RBC (4.19-5.50) M/mcL Hgb (12.9-16.9) g/dL Hct (37.5-50.1) % MCV (83.0-100.0) fL MCH (28.0-33.3) pg MCHC (31.6-35.5) g/dL RDW (11.5-14.5) % Plt Count (140-400) K/mcL MPV (9.4-12.4) fL PT (9.4-12.1) Seconds INR APTT (26.0-36.0) Seconds Sample Site L Radial ABG pH 7.36 (7.32-7.45) pH Units ABG pCO2 43 (35-45) mmHg ABG pO2 73 L (85-104) mmHg ABG HCO3 24 (21-27) mEq/L ABG Total CO2 26 (20-26) mEq/L ABG O2 Saturation 94 L (95-98) % ABG Base Excess -1 (-2 to 3) mEq/L Danny Test Positive O2 Delivery Device Room Air Inspired O2 21.0 (1-15=lpm [id number]=%) Sodium (136-145) mEq/L Potassium (3.5-5.1) mEq/L Chloride (98-107) mEq/L Carbon Dioxide (23-29) mEq/L BUN (6-20) mg/dL Creatinine (0.70-1.30) mg/dL Est GFR ( Amer) (> 60) Est GFR (Non-Af Amer) (> 60) BUN/Creatinine Ratio (6-26) Glucose (70-105) mg/dL Calculated Osmolality (280-300) Lactic Acid (0.5-2.2) mmol/L Calcium (8.6-10.3) mg/dL Total Bilirubin (0.3-1.0) mg/dL AST (13-39) Units/L ALT (7-52) Units/L Alkaline Phosphatase (34-104) Units/L Ammonia (16-53) mcmol/L Creatine Kinase (30-223) Units/L Serum Total Protein (6.4-8.9) g/dL Albumin (3.5-5.7) g/dL Globulin (2.4-3.5) g/dL Albumin/Globulin Ratio (1.1-2.2) Lipase (11-82) Units/L Beta-Hydroxybutyric Acd (0.02-0.27) mmol/L Urine Color Dark Yellow (Yellow) Urine Clarity Clear (Clear) Urine pH 6.0 (5.0-8.0) pH Units Ur Specific [place] 1.026 H (1.010-1.025) Urine Protein 30 H (Neg-Trace) mg/dL Urine Glucose (UA) Normal (Normal) mg/dL Urine Ketones Trace H (Negative) mg/dL Urine Blood Negative (Negative) Urine Nitrite Negative (Negative) Urine Bilirubin Negative (Negative) Urine Urobilinogen Normal (Normal) mg/dL Ur Leukocyte Esterase Small H (Negative) Urine Microscopic RBC 0-3 (0-3) per hpf Urine Microscopic WBC 3-5 H (0-3) per hpf Ur Squamous Epith Cells Many H (None-Few) per lpf Urine Bacteria None Seen (None-Few) per hpf Hyaline Casts Few (None-Few) per lpf Ur Culture Indicated? NO. A (NO) Urine Opiates Screen Negative (Vokpvy=848) ng/mL Ur Barbiturates Screen Negative (Fpbcwq=664) ng/mL Ur Phencyclidine Scrn Negative (Cutoff=25) ng/mL Ur Amphetamines Screen Positive H (Fraeon=8481) ng/mL U Benzodiazepines Scrn Positive H (Mjcrsc=957) ng/mL Urine Cocaine Screen Positive H (Cutoff= 300) ng/mL U Marijuana (THC) Screen Positive H (Cutoff = 50) ng/mL Ur Drug Screen Interp See Below Ethyl Alcohol (Less than 10) mg/dL - Radiology Data Radiology results reviewed: Yes I reviewed the patient's radiology results. - EKG Data EKG #1 EKG attestation: Yes I reviewed and interpreted this EKG. EKG results narrative: EKG interpreted by me showing sinus rhythm at a rate of 85, QRS of 105, QTC of 441, axis of 80. Critical Care Time Critical Care Time: Yes Total Critical Care Time: 30 Attestation: There was a high probability of clinically significant and/or life-threatening deterioration during the course of this patient's care requiring my acute intervention. Total critical care time of 30 minutes exclusive of procedures.
[2017-12-18] MEDS ORDERED: Naloxone 0.4 MG/ML INJ IVP PRN (21:20)
[2017-12-18] MEDS ORDERED: Acetaminophen 325 MG TABLET PO PRN (21:49)
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
[2017-12-19] MEDS ORDERED: 0.9 % Sodium Chloride 1,000 ML ONE (03:05)
[2017-12-19] MEDS: 0.9 % Sodium Chloride 1,000 ML IVC SCH (03:07)
[2017-12-19] MEDS ORDERED: *HR* Heparin 5,000 UNIT/ML VIAL SQ SCH (06:00)
[2017-12-19 06:26] LABS: Hematocrit 30.7 % (37.5-50.1); Hemoglobin 10.5 g/dL (12.9-16.9); Immature Platelets 2.5 % (1.1-6.1); Mean Corpuscular HGB Conc 34.2 g/dL (31.6-35.5); Mean Corpuscular Hemoglobin 30.4 pg (28.0-33.3); Mean Platelet Volume 9.8 fL (9.4-12.4); Red Blood Count 3.45 M/mcL (4.19-5.50); Red Cell Distribution Width 13.3 % (11.5-14.5)
[2017-12-19 06:42] VITALS: BP 110/64
[2017-12-19 06:47] LABS: BUN/Creatinine Ratio 13 (6-26); Blood Urea Nitrogen 11 mg/dL (6-20); Calcium 7.5 mg/dL (8.6-10.3); Carbon Dioxide 20 mEq/L (23-29); Chloride 112 mEq/L (98-107); Glucose 98 mg/dL (70-105); Osmolality,Calculated 281 (280-300); Potassium 3.4 mEq/L (3.5-5.1); Sodium 136 mEq/L (136-145); eGFR For African Americans > 60 (> 60); eGFR For Non-African Americans > 60 (> 60)
--- NOTE | 2017-12-19 17:47 | Electrocardiograph Report ---
[address] [place], [place] [address] Test Date: 2017-12-18 Pat Name: Ghulam Schafer Department: 103 Room: 3A12 Gender: M [employer]: : 1965 Requested By: Jayy Hawkins Order Number: [id number] Reading MD: Yury Pepper Measurements Intervals [place] Rate: 85 P: 76 OR: 118 QRS: 80 QRSD: 105 T: 71 QT: 398 QTc: 441 Interpretive Statements SINUS RHYTHM WITH SHORT OR INTERVAL Electronically Signed On 12-19-2017 17:45:34 EDT by Yury Pepper
--- NOTE | 2017-12-20 22:08 | Event Note ---
Date of Encounter: 12/20/17 Time of Encounter: 22:06 Notified by staff that patient left AMA yesterday after my shift had ended. I was not notified prior to this message that I received on 12/20/17.
== END 2017-12-19 07:40 | disposition left against medical advice (07) ==
LOC: EMEROO 14:13 → 3ANU 14:13
PROVIDERS: ADMIT Internal Medicine; ATTEND Internal Medicine

== ENCOUNTER 2018-07-01 12:52 | Observation (INO) ==
[2018-07-01] MEDS ORDERED: Isovue-370 500 ML INFUS..BTL IV ONE (13:23)
--- NOTE | 2018-07-01 13:28 | Emergency Department Note ---
Disposition Clinical Impression: Intrahepatic bile duct dilation Disposition: Admitted As Inpatient Condition: Fair Time of Disposition: 16:43 General Adult HPI - General Stated complaint: Constipation, abdominal pain Time Seen by Provider: 07/01/18 13:03 Source: EMS Limitations: no limitations - History of Present Illness HPI Narrative: Patient is a 52-year-old male presenting to the ED because of abdominal pain. Patient endorses a dull non-radiating epigastric pain that began a few days ago, non-postprandial and non-positional in nature. He endorses a pain of 9 on a scale of 1-10. Patient denies any episodes of nausea, vomiting or diarrhea associated with the pain. He has a history of Crohn's disease and his last flareup was 6 years ago, also has a colostomy bag. Patient tells me that he is not sure as to what medications he takes for his Crohn's disease. He was pick ed up by the squad from the Methadone clinic, which he says he goes to for his pain control secondary to his Crohn's disease. Patient had his last bowel movement this morning, denies any Hx of constipation. Patient also endorses increased appetite, denies any fever, fatigue or any Hx of dyspepsia or GERD. Patient denies any systemic signs like of chest pain, shortness of breath, numbness or tingling in extremities. Pain Scale: 0 - Related Data Previous Rx's Medication Instructions Recorded Colostomy Bags [New Image 1 each MC DAILY 10 Days #10 each 06/28/18 Drainable Pouch] Ostomy Adhesive [Stomahesive] 56.7 gm MC DAILY 10 Days #10 06/28/18 paste..g. Allergies Allergy/AdvReac Type Severity Reaction Status Date / Time sulfamethoxazole Allergy Rash Verified 06/28/18 15:55 [From Bactrim] trimethoprim [From Bactrim] Allergy Rash Verified 06/28/18 15:55 Constitutional: Denies: fever Cardiovascular: Denies: chest pain Respiratory: Denies: cough Gastrointestinal: Reports: abdominal pain Genitourinary: Denies: urgency Musculoskeletal: Denies: back pain Integumentary: Denies: rash Neurological: Denies: headache Psychiatric: Denies: anxiety Endocrine: Denies: fatigue Past Medical History - Past Medical History Medical history: Reports: non-contributory, other Surgical history: Reports: colectomy, colostomy, other Psychiatric history: Reports: anxiety, depression - Social History Smoking Status: Current every day smoker Smokeless Tobacco Status: No Alcohol use: Reports: none Drug use: Reports: marijuana Physical Exam Gen.: Vitals noted. moderate distress. Alert, awake and oriented * [address], and time, well developed, well-nourished resting comfortably in bed. HEENT: oropharynx clear, Normocephalic, atraumatic, MMM Neck: supple, no JVD, no lymphadenopathy, no carotid bruit. Cardiac: RRR, no murmur, +S1/S2, No BLE edema, PMI non-displaced Pulmonary: CTA bilaterally, no wheezes, rales or rhonchi, equal chest expansion, unlabored breathing Abdomen: tender, guarded, BS noted, non- distended. No organomegaly, no pulsat ile masses, Back: No bilateral flank tenderness, no suprapubic pain Skin: warm and dry, no visible lesions. Feels warm, clammy, no rashes, no lesions, no erythema MSK: ROM not assessed. no joint swelling noted, gait not assessed while in bed. Non tender calf or clubbing, no cyanosis/clubbing/ or edema Neuro: A&O, moves all extremities, no focal deficits, sensation intact Psych: Appropriate mood and behavior, normal speech. - General Limitations: no limitations General appearance: alert Course Vital Signs Temperature 97.9 F 07/01/18 13:07 Pulse Rate 74 07/01/18 13:07 Respiratory Rate 18 07/01/18 13:07 Blood Pressure 132/94 07/01/18 13:07 O2 Sat by Pulse Oximetry 98 07/01/18 13:07 Temperature 97.9 F 07/01/18 13:07 Pulse Rate 74 07/01/18 13:07 Respiratory Rate 18 07/01/18 13:07 Blood Pressure 132/94 07/01/18 13:07 O2 Sat by Pulse Oximetry 98 07/01/18 13:07 Oxygen Delivery Oxygen Delivery Room Air Medical Decision Making - [facility] Narrative Medical decision making narrative: Patient presents to the ED because dull non-radiating epigastric seay for the past few days. On presentation, patient is not tachycardic or hypertensive. We will get a CT of his abdomen pelvis with contrast to rule out any inflammation, abdominal mass, or any evidence of peritonitis. The 50s and lipases on him to rule out any evidence for hepatobiliary injury or pancreatits. 1600: Patient's CT with contrast showed moderate intrahepatic and extrahepatic biliary distention, with moderate dilatation of the pancreatic duct. His LFTs and lipases were unremarkable. UA showed no evidence of UTI. GI has been consulted, and he will be admitted to the hospital for further management and will potentially get an MRCP tomorrow morning. - Lab Data Result diagrams: 07/01/18 14:03 07/01/18 14:03 Lab Results 07/01/18 07/01/18 07/01/18 Range/Units 14:03 14:03 14:03 WBC 4.0 L (4.3-11.1) K/mcL RBC 3.89 L (4.19-5.50) M/mcL Hgb 11.3 L (12.9-16.9) g/dL Hct 34.2 L (37.5-50.1) % MCV 87.9 (83.0-100.0) fL MCH 29.0 (28.0-33.3) pg MCHC 33.0 (31.6-35.5) g/dL RDW 14.6 H (11.5-14.5) % Plt Count 228 (140-400) K/mcL MPV 8.7 L (9.4-12.4) fL Immature Gran % 0.3 (0-4) % Seg Neutrophils % 50.8 % Lymphocytes % 37.8 % Monocytes % 9.3 % Eosinophils % 1.5 % Basophils % 0.3 % Neutrophils # 2.0 (1.6-8.9) K/mcL Lymphocytes # 1.5 (0.6-4.6) K/mcL Monocytes # 0.4 (0.0-1.3) K/mcL Eosinophils # 0.1 (0.0-0.6) K/mcL Basophils # 0.0 (0.0-0.2) K/mcL ESR (0-10) mm/hr Sodium 139 (136-145) mEq/L Potassium 3.9 (3.5-5.1) mEq/L Chloride 104 (98-107) mEq/L Carbon Dioxide 28 (23-29) mEq/L BUN 19 (6-20) mg/dL Creatinine 1.13 (0.70-1.30) mg/dL Est GFR ( Amer) > 60 (> 60) Est GFR (Non-Af Amer) > 60 (> 60) BUN/Creatinine Ratio 17 (6-26) Glucose 87 (70-105) mg/dL Calculated Osmolality 290 (280-300) Lactic Acid 0.4 L (0.5-2.2) mmol/L Calcium 9.1 (8.6-10.3) mg/dL Total Bilirubin 0.4 (0.3-1.0) mg/dL Direct Bilirubin 0.1 (0.0-0.2) mg/dL Indirect Bilirubin 0.3 (0.0-1.2) mg/dL AST 27 (13-39) Units/L ALT 22 (7-52) Units/L Alkaline Phosphatase 65 (34-104) Units/L Serum Total Protein 6.9 (6.4-8.9) g/dL Albumin 3.8 (3.5-5.7) g/dL Globulin 3.1 (2.4-3.5) g/dL Albumin/Globulin Ratio 1.2 (1.1-2.2) Lipase 23 (11-82) Units/L Urine Color (Yellow) Urine Clarity (Clear) Urine pH (5.0-8.0) pH Units Ur Specific [place] (1.010-1.025) Urine Protein (Neg-Trace) mg/dL Urine Glucose (UA) (Normal) mg/dL Urine Ketones (Negative) mg/dL Urine Blood (Negative) Urine Nitrite (Negative) Urine Bilirubin (Negative) Urine Urobilinogen (Normal) mg/dL Ur Leukocyte Esterase (Negative) Urine Microscopic RBC (0-3) per hpf Urine Microscopic WBC (0-3) per hpf Ur Squamous Epith Cells (None-Few) per lpf Urine Bacteria (None-Few) per hpf Hyaline Casts (None-Few) per lpf Ur Culture Indicated? (NO) 07/01/18 07/01/18 Range/Units 14:03 15:50 WBC (4.3-11.1) K/mcL RBC (4.19-5.50) M/mcL Hgb (12.9-16.9) g/dL Hct (37.5-50.1) % MCV (83.0-100.0) fL MCH (28.0-33.3) pg MCHC (31.6-35.5) g/dL RDW (11.5-14.5) % Plt Count (140-400) K/mcL MPV (9.4-12.4) fL Immature Gran % (0-4) % Seg Neutrophils % % Lymphocytes % % Monocytes % % Eosinophils % % Basophils % % Neutrophils # (1.6-8.9) K/mcL Lymphocytes # (0.6-4.6) K/mcL Monocytes # (0.0-1.3) K/mcL Eosinophils # (0.0-0.6) K/mcL Basophils # (0.0-0.2) K/mcL ESR 24 H (0-10) mm/hr Sodium (136-145) mEq/L Potassium (3.5-5.1) mEq/L Chloride (98-107) mEq/L Carbon Dioxide (23-29) mEq/L BUN (6-20) mg/dL Creatinine (0.70-1.30) mg/dL Est GFR ( Amer) (> 60) Est GFR (Non-Af Amer) (> 60) BUN/Creatinine Ratio (6-26) Glucose (70-105) mg/dL Calculated Osmolality (280-300) Lactic Acid (0.5-2.2) mmol/L Calcium (8.6-10.3) mg/dL Total Bilirubin (0.3-1.0) mg/dL Direct Bilirubin (0.0-0.2) mg/dL Indirect Bilirubin (0.0-1.2) mg/dL AST (13-39) Units/L ALT (7-52) Units/L Alkaline Phosphatase (34-104) Units/L Serum Total Protein (6.4-8.9) g/dL Albumin (3.5-5.7) g/dL Globulin (2.4-3.5) g/dL Albumin/Globulin Ratio (1.1-2.2) Lipase (11-82) Units/L Urine Color Yellow (Yellow) Urine Clarity Clear (Clear) Urine pH 5.5 (5.0-8.0) pH Units Ur Specific [place] > 1.030 H (1.010-1.025) Urine Protein Negative (Neg-Trace) mg/dL Urine Glucose (UA) Normal (Normal) mg/dL Urine Ketones Negative (Negative) mg/dL Urine Blood Negative (Negative) Urine Nitrite Negative (Negative) Urine Bilirubin Negative (Negative) Urine Urobilinogen Normal (Normal) mg/dL Ur Leukocyte Esterase Small H (Negative) Urine Microscopic RBC 0-3 (0-3) per hpf Urine Microscopic WBC 5-15 H (0-3) per hpf Ur Squamous Epith Cells Many H (None-Few) per lpf Urine Bacteria None Seen (None-Few) per hpf Hyaline Casts None Seen (None-Few) per lpf Ur Culture Indicated? NO. A (NO)
[2018-07-01 14:20] LABS: Basophils % 0.3 %; Eosinophils # 0.1 K/mcL (0.0-0.6); Eosinophils % 1.5 %; Hematocrit 34.2 % (37.5-50.1); Hemoglobin 11.3 g/dL (12.9-16.9); Immature Granulocytes % 0.3 % (0-4); Lymphocytes # 1.5 K/mcL (0.6-4.6); Lymphocytes % 37.8 %; Mean Corpuscular Volume 87.9 fL (83.0-100.0); Mean Platelet Volume 8.7 fL (9.4-12.4); Monocytes # 0.4 K/mcL (0.0-1.3); Monocytes % 9.3 %; Platelet Count 228 K/mcL (140-400); Red Blood Count 3.89 M/mcL (4.19-5.50); Red Cell Distribution Width 14.6 % (11.5-14.5); Segmented Neutrophils % 50.8 %
[2018-07-01 14:46] LABS: Alanine Aminotransferase 22 Units/L (7-52); Albumin 3.8 g/dL (3.5-5.7); Albumin/Globulin Ratio 1.2 (1.1-2.2); Alkaline Phosphatase 65 Units/L (34-104); Aspartate Amino Transferase 27 Units/L (13-39); BUN/Creatinine Ratio 17 (6-26); Bilirubin,Direct 0.1 mg/dL (0.0-0.2); Bilirubin,Indirect 0.3 mg/dL (0.0-1.2); Bilirubin,Total 0.4 mg/dL (0.3-1.0); Blood Urea Nitrogen 19 mg/dL (6-20); Calcium 9.1 mg/dL (8.6-10.3); Carbon Dioxide 28 mEq/L (23-29); Chloride 104 mEq/L (98-107); Globulin 3.1 g/dL (2.4-3.5); Glucose 87 mg/dL (70-105); Lipase 23 Units/L (11-82); Osmolality,Calculated 290 (280-300); Potassium 3.9 mEq/L (3.5-5.1); Sodium 139 mEq/L (136-145); Total Protein 6.9 g/dL (6.4-8.9); eGFR For Non-African Americans > 60 (> 60)
--- NOTE | 2018-07-01 16:01 | Emergency Department Note ---
Disposition Clinical Impression: Intrahepatic bile duct dilation Disposition: Admitted As Inpatient Referrals: NONE,PCP [Primary Care Provider] - Forms: ED Satisfaction Letter, Work/School Release General Adult HPI - General Chief complaint: ED Abdominal Pain Stated complaint: Constipation, abdominal pain Time Seen by Provider: 07/01/18 13:03 Source: EMS Limitations: no limitations - History of Present Illness Pain Scale: 0 - Related Data Previous Rx's Medication Instructions Recorded Colostomy Bags [New Image 1 each MC DAILY 10 Days #10 each 06/28/18 Drainable Pouch] Ostomy Adhesive [Stomahesive] 56.7 gm MC DAILY 10 Days #10 06/28/18 paste..g. Allergies Allergy/AdvReac Type Severity Reaction Status Date / Time sulfamethoxazole Allergy Rash Verified 06/28/18 15:55 [From Bactrim] trimethoprim [From Bactrim] Allergy Rash Verified 06/28/18 15:55 Past Medical History - Past Medical History Medical history: Reports: non-contributory, other Surgical history: Reports: colectomy, colostomy, other Psychiatric history: Reports: anxiety, depression - Social History Smoking Status: Current every day smoker Smokeless Tobacco Status: No Alcohol use: Reports: none Drug use: Reports: marijuana Physical Exam - General Limitations: no limitations General appearance: alert Course - Consultations Consultation #1: discussed with with Theo Chester NP for GI and they have agreed to be on consult for patient. Time: 16:16 Vital Signs Temperature 97.9 F 07/01/18 13:07 Pulse Rate 74 07/01/18 13:07 Respiratory Rate 18 07/01/18 13:07 Blood Pressure 132/94 07/01/18 13:07 O2 Sat by Pulse Oximetry 98 07/01/18 13:07 Temperature 97.9 F 07/01/18 13:07 Pulse Rate 74 07/01/18 13:07 Respiratory Rate 18 07/01/18 13:07 Blood Pressure 132/94 07/01/18 13:07 O2 Sat by Pulse Oximetry 98 07/01/18 13:07 Oxygen Delivery Oxygen Delivery Room Air Medical Decision Making - Lab Data Result diagrams: 07/01/18 14:03 07/01/18 14:03 Lab Results 07/01/18 07/01/18 07/01/18 Range/Units 14:03 14:03 14:03 WBC 4.0 L (4.3-11.1) K/mcL RBC 3.89 L (4.19-5.50) M/mcL Hgb 11.3 L (12.9-16.9) g/dL Hct 34.2 L (37.5-50.1) % MCV 87.9 (83.0-100.0) fL MCH 29.0 (28.0-33.3) pg MCHC 33.0 (31.6-35.5) g/dL RDW 14.6 H (11.5-14.5) % Plt Count 228 (140-400) K/mcL MPV 8.7 L (9.4-12.4) fL Immature Gran % 0.3 (0-4) % Seg Neutrophils % 50.8 % Lymphocytes % 37.8 % Monocytes % 9.3 % Eosinophils % 1.5 % Basophils % 0.3 % Neutrophils # 2.0 (1.6-8.9) K/mcL Lymphocytes # 1.5 (0.6-4.6) K/mcL Monocytes # 0.4 (0.0-1.3) K/mcL Eosinophils # 0.1 (0.0-0.6) K/mcL Basophils # 0.0 (0.0-0.2) K/mcL ESR (0-10) mm/hr Sodium 139 (136-145) mEq/L Potassium 3.9 (3.5-5.1) mEq/L Chloride 104 (98-107) mEq/L Carbon Dioxide 28 (23-29) mEq/L BUN 19 (6-20) mg/dL Creatinine 1.13 (0.70-1.30) mg/dL Est GFR ( Amer) > 60 (> 60) Est GFR (Non-Af Amer) > 60 (> 60) BUN/Creatinine Ratio 17 (6-26) Glucose 87 (70-105) mg/dL Calculated Osmolality 290 (280-300) Lactic Acid 0.4 L (0.5-2.2) mmol/L Calcium 9.1 (8.6-10.3) mg/dL Total Bilirubin 0.4 (0.3-1.0) mg/dL Direct Bilirubin 0.1 (0.0-0.2) mg/dL Indirect Bilirubin 0.3 (0.0-1.2) mg/dL AST 27 (13-39) Units/L ALT 22 (7-52) Units/L Alkaline Phosphatase 65 (34-104) Units/L Serum Total Protein 6.9 (6.4-8.9) g/dL Albumin 3.8 (3.5-5.7) g/dL Globulin 3.1 (2.4-3.5) g/dL Albumin/Globulin Ratio 1.2 (1.1-2.2) Lipase 23 (11-82) Units/L Urine Color (Yellow) Urine Clarity (Clear) Urine pH (5.0-8.0) pH Units Ur Specific [place] (1.010-1.025) Urine Protein (Neg-Trace) mg/dL Urine Glucose (UA) (Normal) mg/dL Urine Ketones (Negative) mg/dL Urine Blood (Negative) Urine Nitrite (Negative) Urine Bilirubin (Negative) Urine Urobilinogen (Normal) mg/dL Ur Leukocyte Esterase (Negative) Urine Microscopic RBC (0-3) per hpf Urine Microscopic WBC (0-3) per hpf Ur Squamous Epith Cells (None-Few) per lpf Urine Bacteria (None-Few) per hpf Hyaline Casts (None-Few) per lpf Ur Culture Indicated? (NO) 07/01/18 07/01/18 Range/Units 14:03 15:50 WBC (4.3-11.1) K/mcL RBC (4.19-5.50) M/mcL Hgb (12.9-16.9) g/dL Hct (37.5-50.1) % MCV (83.0-100.0) fL MCH (28.0-33.3) pg MCHC (31.6-35.5) g/dL RDW (11.5-14.5) % Plt Count (140-400) K/mcL MPV (9.4-12.4) fL Immature Gran % (0-4) % Seg Neutrophils % % Lymphocytes % % Monocytes % % Eosinophils % % Basophils % % Neutrophils # (1.6-8.9) K/mcL Lymphocytes # (0.6-4.6) K/mcL Monocytes # (0.0-1.3) K/mcL Eosinophils # (0.0-0.6) K/mcL Basophils # (0.0-0.2) K/mcL ESR 24 H (0-10) mm/hr Sodium (136-145) mEq/L Potassium (3.5-5.1) mEq/L Chloride (98-107) mEq/L Carbon Dioxide (23-29) mEq/L BUN (6-20) mg/dL Creatinine (0.70-1.30) mg/dL Est GFR ( Amer) (> 60) Est GFR (Non-Af Amer) (> 60) BUN/Creatinine Ratio (6-26) Glucose (70-105) mg/dL Calculated Osmolality (280-300) Lactic Acid (0.5-2.2) mmol/L Calcium (8.6-10.3) mg/dL Total Bilirubin (0.3-1.0) mg/dL Direct Bilirubin (0.0-0.2) mg/dL Indirect Bilirubin (0.0-1.2) mg/dL AST (13-39) Units/L ALT (7-52) Units/L Alkaline Phosphatase (34-104) Units/L Serum Total Protein (6.4-8.9) g/dL Albumin (3.5-5.7) g/dL Globulin (2.4-3.5) g/dL Albumin/Globulin Ratio (1.1-2.2) Lipase (11-82) Units/L Urine Color Yellow (Yellow) Urine Clarity Clear (Clear) Urine pH 5.5 (5.0-8.0) pH Units Ur Specific [place] > 1.030 H (1.010-1.025) Urine Protein Negative (Neg-Trace) mg/dL Urine Glucose (UA) Normal (Normal) mg/dL Urine Ketones Negative (Negative) mg/dL Urine Blood Negative (Negative) Urine Nitrite Negative (Negative) Urine Bilirubin Negative (Negative) Urine Urobilinogen Normal (Normal) mg/dL Ur Leukocyte Esterase Small H (Negative) Urine Microscopic RBC 0-3 (0-3) per hpf Urine Microscopic WBC 5-15 H (0-3) per hpf Ur Squamous Epith Cells Many H (None-Few) per lpf Urine Bacteria None Seen (None-Few) per hpf Hyaline Casts None Seen (None-Few) per lpf Ur Culture Indicated? NO. A (NO) Attestation Statement - Attestation Attestation: I examined this patient and my medical decision-making was reviewed with the Resident Physician. I agree with the documented findings, disposition and treatment plan as described except to the extent set forth below. 53 year old male presents to the ED with complaints of constipation and epigatric abdominal pain. 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 Gi has been consulted as a ERCP/MRCP is indicated and will likley need admission
[2018-07-01 16:08] LABS: Bilirubin,Urine Negative (Negative); Blood,Urine Negative (Negative); Clarity,Urine Clear (Clear); Color,Urine Yellow (Yellow); Glucose,Urine (UA) Normal (Normal); Ketones,Urine Negative (Negative); Leukocyte Esterase,Urine Small (Negative); Nitrite,Urine Negative (Negative); PH,Urine 5.5 pH Units (5.0-8.0); Protein,Urine Negative (Neg-Trace); Specific Gravity,Urine > 1.030 (1.010-1.025); Urobilinogen,Urine Normal (Normal)
[2018-07-01 16:11] LABS: Bacteria,Urine None Seen per hpf (None-Few); Hyaline Casts,Urine None Seen per lpf (None-Few); RBC,Urine 0-3 per hpf (0-3); Squamous Epithelial Cell,Urine Many per lpf (None-Few)
[2018-07-01] MEDS ORDERED: Gadolinium Contrast Agent (WT Based) IV PRN (16:20)
--- NOTE | 2018-07-01 17:09 | Internal Med History&Physical ---
Date of Encounter: 07/01/18 Time of Encounter: 17:04 Internal Medicine - H&P: HPI Chief complaint: epigastric pain Admitted From: Home Plans for Post Hospital Care: Home History of present illness: Mr. Schafer is a 53 year old male with past medical history of severe crohn's diagnosed at 10years of age, multiple bowel surgeries due to crohn's, smoker, ostomy. Pt presents with 2-3 day history of eigastric pain. Reports N/V but denies fever or chills. He denies history of liver disease, hepatitis that he is aware of. He rates pain 8/10. Pt reports significant weight loss over the years. In ED WBC 4.0, Hgb 11.3, plt 8.7, Na 139, BUN 19, Cr 1.13. Lipase 23. Urine analysis negative for signs of infection. CT abd and pelvis CT/CT abd pelvis w iv no oral IMPRESSION: Moderate intrahepatic and extrahepatic biliary dilatation appearing to be caused by obstruction of the common duct at the ampulla. Uncertain if the obstruction is caused by soft tissue or noncalcified stone. Moderate obstruction of the pancreatic duct also present. Prior colectomy with ileostomy. No finding worrisome for active flare up of Crohn's disease. RECOMMENDATIONS: ERCP or MRCP suggested for further evaluation and treatment. Past Med Surg Social Fam HX - Past Medical History Medical history: non-contributory, other Additional medical history: crohns Psychiatric history: anxiety, depression - Past Surgical History Surgical History: colectomy, colostomy, other Additional surgical history: kidney surg, bowel surgery, - Social History Smoking Status: Current every day smoker Smokeless Tobacco Status: No Alcohol use: none Drug use: marijuana - Family History Mother Living Status: Hx Family Cancer: Yes (lung) Hx Family Autoimmune Disorders: Yes (lupus) Father Living Status: Hx Family Cardiac Disorders: Yes ([place]) Hx Family Endocrine Disorder: Yes Internal Medicine - H&P: Meds Colostomy Bags [New Image Drainable Pouch] 1 each MC DAILY 10 Days #10 each 06/28/18 [Rx] Ostomy Adhesive [Stomahesive] 56.7 gm MC DAILY 10 Days #10 paste..g. 06/28/18 [Rx] Allergy/AdvReac Type Severity Reaction Status Date / Time sulfamethoxazole Allergy Rash Verified 06/28/18 15:55 [From Bactrim] trimethoprim [From Bactrim] Allergy Rash Verified 06/28/18 15:55 All Systems PM: A 10-system review of systems was performed and is negative for pertinent findings except as documented above in the HPI. - Constitutional Vitals: Temp Pulse Resp BP Pulse Ox 97.9 F 74 18 132/94 98 07/01/18 13:07 07/01/18 13:07 07/01/18 13:07 07/01/18 13:07 07/01/18 13:07 General appearance: Present: A&O X 3, no acute distress Exam: . - Head Head exam: Present: atraumatic, normocephalic - Eye Eye exam: Present: PERRL, conjuntiva pink, sclera anicteric Pupils: Present: PERRL - Neck Neck exam general surgery: Present: supple, trachea midline. Absent: lymphadenopathy - Respiratory Respiratory exam: Present: CTAB. Absent: accessory muscle use, rales, rhonchi, wheezes - Cardiovascular Cardiovascular exam: Present: RRR, +S1, +S2. Absent: diastolic murmur, gallop, rubs, systolic murmur - GI/Abdominal GI/Abdominal exam: Present: normal bowel sounds, soft, no peritoneal signs. Absent: distended Additional comments: positive epigastric tenderness - Extremities Exam Extremities exam: Present: warm, radial pulses palpable and symmetrical. Absent: calf tenderness, cyanotic, pedal edema - Neurological Exam Neurological exam: Present: CN II-XII intact, oriented X3, no focal deficits. Absent: pronater drift, facial droop, speech deficit - Skin Skin exam: Present: dry, intact Internal Med - H&P Results - Labs CBC & Chem 7: 07/01/18 14:03 07/01/18 14:03 Labs: Short CBC 07/01/18 Range/Units 14:03 WBC 4.0 L (4.3-11.1) K/mcL Hgb 11.3 L (12.9-16.9) g/dL Hct 34.2 L (37.5-50.1) % Plt Count 228 (140-400) K/mcL Neutrophils # 2.0 (1.6-8.9) K/mcL BMP 07/01/18 14:03 Sodium 139 Potassium 3.9 Chloride 104 Carbon Dioxide 28 BUN 19 Creatinine 1.13 Glucose 87 Calcium 9.1 Liver Function 07/01/18 Range/Units 14:03 Total Bilirubin 0.4 (0.3-1.0) mg/dL Direct Bilirubin 0.1 (0.0-0.2) mg/dL AST 27 (13-39) Units/L ALT 22 (7-52) Units/L Alkaline Phosphatase 65 (34-104) Units/L Albumin 3.8 (3.5-5.7) g/dL Urine 07/01/18 Range/Units 15:50 Urine Color Yellow (Yellow) Urine Clarity Clear (Clear) Urine pH 5.5 (5.0-8.0) pH Units Ur Specific [place] > 1.030 H (1.010-1.025) Urine Protein Negative (Neg-Trace) mg/dL Urine Glucose (UA) Normal (Normal) mg/dL - Impressions ITS Impressions Abdomen/Pelvis CT 07/01/18 13:23 IMPRESSION: Moderate intrahepatic and extrahepatic biliary dilatation appearing to be caused by obstruction of the common duct at the ampulla. Uncertain if the obstruction is caused by soft tissue or noncalcified stone. Moderate obstruction of the pancreatic duct also present. Prior colectomy with ileostomy. No finding worrisome for active flare up of Crohn's disease. RECOMMENDATIONS: ERCP or MRCP suggested for further evaluation and treatment. D/ / Akira Patel MD / Akira Patel MD Interpreting Provider: Akira Patel MD - Assessment and plan (1) Intrahepatic bile duct dilation Current Visit: Yes Status: Acute (2) Upper abdominal pain Current Visit: No Status: Acute Assessment and plan: Likely due to above PRN pain control. GI consulted to see. NPO after midnight for scope in am (3) Vomiting Current Visit: No Status: Acute Assessment and plan: Zofran PRN Qualifiers: Qualified Code(s): R11.10 - Vomiting, unspecified (4) Tobacco abuse disorder Current Visit: No Status: Chronic Assessment and plan: Cessation strongly advised (5) Crohn's disease of intestine Current Visit: No Status: Acute Assessment and plan: GI consulted Qualifiers: Digestive disease complication type: other complication Qualified Code(s): K50.918 - Crohn's disease, unspecified, with other complication - Time Spent With Patient Total time spent is greater than 50% in coordination of care (as documented) at patient's floor/unit and/or counseling patient: 25 - 35 minutes
[2018-07-01] MEDS ORDERED: Naloxone 0.4 MG/ML INJ IVP PRN (17:26)
[2018-07-01] MEDS ORDERED: Ondansetron 4 MG/2 ML VIAL IVP PRN (17:26)
[2018-07-01] MEDS: 0.9 % Sodium Chloride 1,000 ML IVC SCH (17:58)
[2018-07-01] MEDS: *HR* HYDROcodone/Acet 5/325 mg TABLET PO PRN (17:58)
[2018-07-01] MEDS: Acetaminophen 325 MG TABLET PO PRN (20:24)
[2018-07-02] MEDS: *HR* HYDROcodone/Acet 5/325 mg TABLET PO PRN (03:10)
[2018-07-02 03:29] LABS: Amphetamine Screen,Urine Positive ng/mL (Cutoff=1000); Barbiturate Screen,Urine Negative ng/mL (Cutoff=200); Benzodiazepines Screen,Urine Negative ng/mL (Cutoff=200); Cannabinoid Screen,Urine Positive ng/mL (Cutoff = 50); Cocaine Screen,Urine Positive ng/mL (Cutoff= 300); Opiate Screen,Urine Positive ng/mL (Cutoff=300); Phencyclidine Screen,Urine Negative ng/mL (Cutoff=25)
[2018-07-02 07:35] LABS: Basophils % 0.4 %; Eosinophils # 0.1 K/mcL (0.0-0.6); Eosinophils % 2.3 %; Hematocrit 36.2 % (37.5-50.1); Hemoglobin 11.9 g/dL (12.9-16.9); Immature Granulocytes % 0.2 % (0-4); Lymphocytes # 1.3 K/mcL (0.6-4.6); Lymphocytes % 27.2 %; Mean Corpuscular HGB Conc 32.9 g/dL (31.6-35.5); Mean Corpuscular Hemoglobin 28.7 pg (28.0-33.3); Mean Corpuscular Volume 87.2 fL (83.0-100.0); Mean Platelet Volume 8.9 fL (9.4-12.4); Monocytes # 0.4 K/mcL (0.0-1.3); Monocytes % 8.8 %; Platelet Count 232 K/mcL (140-400); Red Blood Count 4.15 M/mcL (4.19-5.50); Red Cell Distribution Width 14.1 % (11.5-14.5); Segmented Neutrophils % 61.1 %
[2018-07-02 07:58] LABS: BUN/Creatinine Ratio 15 (6-26); Blood Urea Nitrogen 14 mg/dL (6-20); Calcium 8.7 mg/dL (8.6-10.3); Carbon Dioxide 27 mEq/L (23-29); Chloride 107 mEq/L (98-107); Glucose 86 mg/dL (70-105); Osmolality,Calculated 284 (280-300); Sodium 137 mEq/L (136-145); eGFR For Non-African Americans > 60 (> 60)
--- NOTE | 2018-07-02 11:31 | Gastroenterology Consult Note ---
<Tahmina Friend - Last Filed: 07/02/18 11:29> Date of Encounter: 07/02/18 Time of Encounter: 10:30 - Assessment and plan (1) Intrahepatic bile duct dilation Current Visit: Yes Status: Acute Assessment and plan: Pt has history of dilated PD. MRI shows a 1.3 cm ampullary nodule. Will proceed with EUS/ERCP tomorrow with possible stenting/biopsies, will discuss with Dr Andrade. LFTs remain normal. Monitor labs, IVF, pain control, antiemetics. (2) Cachexia Current Visit: No Status: Acute (3) Ulcerative colitis Current Visit: No Status: Suspected Assessment and plan: s/p resection, CT does not show any symptoms of active crohns disease. Qualifiers: Ulcerative colitis location: unspecified ulcerative colitis location Digestive disease complication type: without complication Qualified Code(s): K51.90 - Ulcerative colitis, unspecified, without complications - Time Spent With Patient Total time spent is greater than 50% in coordination of care (as documented) at patient's floor/unit and/or counseling patient: GI History of Present Illness - Data of Consult Patient: known to practice within the last 3 years Consult date: 07/02/18 Requesting Physician: Misha Lloyd - Consult Narrative Reason for consult: biliary dilation History of present illness: Mr. Schafer is a 53 year old male with past medical history of severe crohn's diagnosed at 10years of age, multiple bowel surgeries due to crohn's, smoker, ostomy. According to Dr Andrade's records the patient had ulcerative colitis and is status post proctocolectomy. Last colonoscopy was in 2010 which was normal. He had an ERCP in 05/05 for dilated PD which was normal. He was recommended EUS and referred to GI in [place] but is it unclear if the patient actually followed up there. He was eventually discharged from GI practice due to no shows. He states that methadone is the only medicine that helps with his abdominal pain. Pt presents with 2-3 day history of eigastric pain. Reports N/V but denies fever or chills. He denies any change in bowel frequency, consistence, or bloody/tarry stools. He states he has not been on biologics or treatment for crohn's dx since having the ileostomy in 2001. He denies history of liver disease, hepatitis that he is aware of. He rates pain 8/10. Pt reports significant weight loss over the years. In ED WBC 4.0, Hgb 11.3, plt 8.7, Na 139, BUN 19, Cr 1.13. Lipase 23. Urine analysis negative for signs of infection. LFts are normal. UDS was positive for opiates, cocaine, amphetamines and marijuanna. CT of the abdomen showed moderate CBD and PD dilation. MRI was ordered and it showed 1.3 cm ampullary nodule causing dilation of the CBD and PD, and renal cyst. colonoscopy: 03/05 s/p proctocolectomy, normal scope ERCP: 05/05 normal ERCP anticoagulants: denies nsaids: denies Past Med Surg Social Fam HX - Past Medical History Medical history: non-contributory, other Additional medical history: crohns Psychiatric history: anxiety, depression - Past Surgical History Surgical History: colectomy, colostomy, other Additional surgical history: kidney surg, bowel surgery, - Social History Smoking Status: Current every day smoker Packs per day: 0.5 Smokeless Tobacco Status: No Alcohol use: none Drug use: marijuana - Family History Mother Living Status: Hx Family Cancer: Yes (lung) Hx Family Autoimmune Disorders: Yes (lupus) Father Living Status: Hx Family Cardiac Disorders: Yes ([place]) Hx Family Endocrine Disorder: Yes Review of Systems: GI: as per LUMMI GENERAL: denies fever, has some chills EYES: denies yellow discoloration ENT: denies pain with swallowing or difficulty swallowing CARDIO: denies chest pain, palpitations RESP: No Shortness of breath with exertion : denies change in color of urine NEURO: weakness HEME: Denies any bruising MS: chronic back and joint pain. DERM: denies rash or itching PSYCH: history of anxiety and depression - Constitutional Vitals: Temp Pulse Resp BP Pulse Ox 98.5 F 82 14 129/72 94 07/02/18 11:19 07/02/18 11:19 07/02/18 11:19 07/02/18 11:19 07/02/18 11:19 Exam: CONSTITUTIONAL:alert, no acute distress.HEAD:normocephalic, bitemporal wasting.EYES:no jaundice.NECK:no obvious swelling.HEART:regular rate and rhythm, no murmurs.LUNGS:bilateral good air entry.ABDOMEN:non distended, soft, tender to epigastric area, ostomy noted with small amount of yellow stool in the bag, no masses pulpable, no organomegaly.RECTAL EXAM:Deferred.EXTRE MITIES:no clubbing, cyanosis or edema, cachexia noted.SKIN:no stigmata of chronic liver disease, pallor noted, multiple tattoos noted.NEUROLOGIC:no obvious focal defect. Results - Labs CBC & Chem 7: 07/02/18 06:33 07/02/18 06:33 Labs: Last Result ESR 24 mm/hr (0-10) H 07/01/18 14:03 Calcium 8.7 mg/dL (8.6-10.3) 07/02/18 06:33 Urine Opiates Screen Positive ng/mL (Aeadur=441) H 07/02/18 03:03 Entire Visit Hgb 11.9 g/dL (12.9-16.9) L 07/02/18 06:33 Hct 36.2 % (37.5-50.1) L 07/02/18 06:33 Total Bilirubin 0.4 mg/dL (0.3-1.0) 07/01/18 14:03 AST 27 Units/L (13-39) 07/01/18 14:03 ALT 22 Units/L (7-52) 07/01/18 14:03 Lipase 23 Units/L (11-82) 07/01/18 14:03 - Impressions Impressions Abdomen/Pelvis CT 07/01/18 13:23 IMPRESSION: Moderate intrahepatic and extrahepatic biliary dilatation appearing to be caused by obstruction of the common duct at the ampulla. Uncertain if the obstruction is caused by soft tissue or noncalcified stone. Moderate obstruction of the pancreatic duct also present. Prior colectomy with ileostomy. No finding worrisome for active flare up of Crohn's disease. RECOMMENDATIONS: ERCP or MRCP suggested for further evaluation and treatment. D/ / Akira Patel MD / Akira Patel MD Interpreting Provider: Akira Patel MD Abdomen MRI 07/01/18 16:20 IMPRESSION: 1. There is a 1.3 cm ampullary nodule causing dilatation of the common bile duct and pancreatic duct. Recommend further correlation with ERCP and tissue sampling. 2. Renal cysts. D/ / Eldon Duff MD / Eldon Duff MD Interpreting Provider: Eldon Duff MD Consult Discharge Plan - Plan Referrals: NONE,PCP [Primary Care Provider] - <Layla Andrade - Last Filed: 07/02/18 17:34> Date of Encounter: 07/02/18 Time of Encounter: 17:00 - Time Spent With Patient Total time spent is greater than 50% in coordination of care (as documented) at patient's floor/unit and/or counseling patient: GI History of Present Illness - Data of Consult Requesting Physician: Misha Lloyd - Consult Narrative History of present illness: Mr. Schafer is a 53 year old male - Constitutional Vitals: Temp Pulse Resp BP Pulse Ox 98.1 F 69 16 122/70 95 07/02/18 14:23 07/02/18 14:23 07/02/18 14:23 07/02/18 14:23 07/02/18 14:23 Results - Labs CBC & Chem 7: 07/02/18 06:33 07/02/18 06:33 Labs: Last Result ESR 24 mm/hr (0-10) H 07/01/18 14:03 Calcium 8.7 mg/dL (8.6-10.3) 07/02/18 06:33 Urine Opiates Screen Positive ng/mL (Sfkfmb=888) H 07/02/18 03:03 Entire Visit Hgb 11.9 g/dL (12.9-16.9) L 07/02/18 06:33 Hct 36.2 % (37.5-50.1) L 07/02/18 06:33 Total Bilirubin 0.4 mg/dL (0.3-1.0) 07/01/18 14:03 AST 27 Units/L (13-39) 07/01/18 14:03 ALT 22 Units/L (7-52) 07/01/18 14:03 Lipase 23 Units/L (11-82) 07/01/18 14:03 - Impressions Impressions Abdomen MRI 07/01/18 16:20 IMPRESSION: 1. There is a 1.3 cm ampullary nodule causing dilatation of the common bile duct and pancreatic duct. Recommend further correlation with ERCP and tissue sampling. 2. Renal cysts. D/ / Eldon Duff MD / Eldon Duff MD Interpreting Provider: Eldon Duff MD - Attending Attestation I have personally performed a face to face evaluation on this patient. I have reviewed and agree with the care plan. History and Exam by me shows: Patient seen denies any abdominal pain. On examination alert and awake abdomen is benign. Assessment: Patient is mildly dilated PD and CBD with MRI concerning for periampullary lesion. Recommendation: EGD with side-viewing scope
[2018-07-02] MEDS: Methadone Oral Concentrate 50 MG/5 ML UDC PO SCH (11:36)
[2018-07-02] MEDS: 0.9 % Sodium Chloride 1,000 ML IVC SCH (15:00)
[2018-07-02] MEDS: Acetaminophen 325 MG TABLET PO PRN ×2 (15:00→22:09)
--- NOTE | 2018-07-02 17:20 | Internal Med Progress Note ---
Hospitalist Progress Note - Encounter Date of Encounter: 07/02/18 Time of Encounter: 17:10 - Subjective Interval History: Pt denies fever or chills. He denies N/V or diarrhea. He does have a colostomy. He denies CP or SOB. He does report epigastric discomfort. - Exam Vitals: Temp Pulse Resp BP Pulse Ox 98.1 F 69 16 122/70 95 07/02/18 14:23 07/02/18 14:23 07/02/18 14:23 07/02/18 14:23 07/02/18 14:23 Exam: General appearance: Present: A&O X 3, no acute distress Exam: - Head Head exam: Present: atraumatic, normocephalic - Eye Eye exam: Present: PERRL, conjuntiva pink, sclera anicteric Pupils: Present: PERRL - Neck Neck exam general surgery: Present: supple, trachea midline. Absent: lymph adenopathy - Respiratory Respiratory exam: Present: CTAB. Absent: accessory muscle use, rales, rhonchi, wheezes - Cardiovascular Cardiovascular exam: Present: RRR, +S1, +S2. Absent: diastolic murmur, gallop, rubs, systolic murmur - GI/Abdominal GI/Abdominal exam: Present: normal bowel sounds, soft, no peritoneal signs. Absent: distended Additional comments: positive epigastric tenderness - Extremities Exam Extremities exam: Present: warm, radial pulses palpable and symmetrical. Absent: calf tenderness, cyanotic, pedal edema - Neurological Exam Neurological exam: Present: CN II-XII intact, oriented X3, no focal deficits. Absent: pronater drift, facial droop, speech deficit - Skin Skin exam: Present: dry, intact - Assessment and Plan (1) Intrahepatic bile duct dilation Current Visit: Yes Status: Acute Assessment and Plan: Pt has hx of dialated PD. GI consulted due to MRI showing 1.3 cm ampullary nodule. GI planing EUS/ERCP tomorrow with possible stenting/biopsies. (2) Upper abdominal pain Current Visit: No Status: Acute Assessment and Plan: Likely due to above PRN pain control. GI consulted to see. NPO after midnight for scope in am (3) Vomiting Current Visit: No Status: Acute Assessment and Plan: Zofran PRN (4) Crohn's disease of intestine Current Visit: No Status: Acute Assessment and Plan: Pt states he has hx of crohn's but GI documenting UC. UC documented in past medical history GI consulted to see. (5) Chronic pain Current Visit: Yes Status: Acute Assessment and Plan: Methadone dose resumed. (6) Substance abuse Current Visit: Yes Status: Acute Assessment and Plan: Pt's urine drug tox screen + for opiates, cocaine, THC, and meth. Pt is not forth coming about is recreational drug use but he did eventually admit to cocaine use. Cessation strongly advised. (7) Tobacco abuse disorder Current Visit: No Status: Chronic Assessment and Plan: Cessation strongly advised DVT Prophylaxis: SCD - Summary of Assessment and Plan Summary of Assessment and Plan: History of present illness: Dr. Lloyd Mr. Schafer is a 53 year old male with past medical history of severe crohn's diagnosed at 10years of age, multiple bowel surgeries due to crohn's, smoker, ostomy. Pt presents with 2-3 day history of eigastric pain. Reports N/V but denies fever or chills. He denies history of liver disease, hepatitis that he is aware of. He rates pain 8/10. Pt reports significant weight loss over the years. - Time Spent with Patient Total time spent is greater than 50% in coordination of care (as documented) at patient's floor/unit and/or counseling patient: less than 15 minutes Plan of Care Discussed with: patient Internal Medicine: Result - Labs CBC & Chem 7: 07/02/18 06:33 07/02/18 06:33 Labs: Short CBC 07/02/18 Range/Units 06:33 WBC 4.9 (4.3-11.1) K/mcL Hgb 11.9 L (12.9-16.9) g/dL Hct 36.2 L (37.5-50.1) % Plt Count 232 (140-400) K/mcL Neutrophils # 3.0 (1.6-8.9) K/mcL BMP 07/02/18 06:33 Sodium 137 Potassium 4.0 Chloride 107 Carbon Dioxide 27 BUN 14 Creatinine 0.91 Glucose 86 Calcium 8.7 - Impressions Impressions Abdomen MRI 07/01/18 16:20 IMPRESSION: 1. There is a 1.3 cm ampullary nodule causing dilatation of the common bile duct and pancreatic duct. Recommend further correlation with ERCP and tissue sampling. 2. Renal cysts. D/ / Eldon Duff MD / Eldon Duff MD Interpreting Provider: Eldon Duff MD Consult Discharge Plan - Plan Referrals: NONE,PCP [Primary Care Provider] - (3) Vomiting Qualifiers: Qualified Code(s): R11.10 - Vomiting, unspecified (4) Crohn's disease of intestine Qualifiers: Digestive disease complication type: other complication Qualified Code(s): K50.918 - Crohn's disease, unspecified, with other complication
[2018-07-03] MEDS: Methadone Oral Concentrate 50 MG/5 ML UDC PO SCH (08:59)
[2018-07-03] MEDS: Acetaminophen 325 MG TABLET PO PRN (11:51)
--- NOTE | 2018-07-03 13:12 | Anesthesia Evaluation PreOp ---
Date of Encounter: 07/03/18 Time of Encounter: 13:10 - Past History Planned Operation: EGD+/- EUS Cardiac History: Denies any Significant Hx Pulmonary History: Smoker SUSTAINABILITY DIRECTOR History: Other (anxiety, depression) Other Medical History: Renal (renal cell ca s/p partial L nephrectomy), Other (Crohns) Anesthesia History: No Prior Anesthetic Complications, Past Anesthesia (partial L nephrectomy, ERCP, mult abd surgery, colostomy, rectal abscess repair) Alcohol Use: none Drug use: marijuana Medications and Allergies Colostomy Bags [New Image Drainable Pouch] 1 each MC DAILY 10 Days #10 each 06/28/18 [Rx] Ostomy Adhesive [Stomahesive] 56.7 gm MC DAILY 10 Days #10 paste..g. 06/28/18 [ Rx] Methadone Oral Concentrate [Methadone] 85 mg PO DAILY 07/02/18 [History] Allergy/AdvReac Type Severity Reaction Status Date / Time sulfamethoxazole Allergy Rash Verified 06/28/18 15:55 [From Bactrim] trimethoprim [From Bactrim] Allergy Rash Verified 06/28/18 15:55 - Meds/Allergy Pre-op Review Medications Reviewed: Yes Allergies Reviewed: Yes Beta Blockers on Current Med List: No Anesthesia Results - Labs 07/02/18 06:33 07/02/18 06:33 - Imaging EKG: report reviewed (Interpretive Statements SINUS RHYTHM WITH SHORT [place] INTERVAL Electronically Signed On 12-19-2017 17:45:34 EDT by Yury Pepper) Anesthesia Exam Vital Signs/O2 Sat, Most Current Temp Pulse Resp BP Pulse Ox 98.4 F 70 16 120/65 96 07/03/18 10:28 07/03/18 10:28 07/03/18 10:28 07/03/18 10:28 07/03/18 10:28 Height: 1.7m Weight: 63kg NPO (# of Hours): >8 - HEENT Pupil (Motor): Pupils equal, EOMI Mallampati: II Teeth: Edentulous - SUSTAINABILITY DIRECTOR LOC: Oriented SUSTAINABILITY DIRECTOR Motor: Normal RUE, Normal LUE, Normal RLE, Normal LLE, Normal Face SUSTAINABILITY DIRECTOR Sensory: Normal: RUE, LUE, RLE, LLE, Face - Cardiac Rhythm: Regular - Pulmonary Breath Sounds: bilateral Clear Respiratory Effort: Symmetrical Anesthesia Assess/Plan ASA Score: 3 Level of consciousness: Cooperative Anesthetic Plan: General, MAC Monitoring Plan: Standard Monitors Recovery Plan: PACU
[2018-07-03] MEDS ORDERED: Lidocaine -MPF 2% 2 ML VIAL ONE (13:34)
[2018-07-03] MEDS ORDERED: *HR* Propofol 200 MG/20 ML VIAL IVP ONE ×2 (13:34→13:49)
--- NOTE | 2018-07-03 15:09 | Anesthesia Evaluation Post Op ---
Date of Encounter: 07/03/18 Time of Encounter: 14:13 - Vital Signs Vital Signs: Vital Signs Time 1410 BP 154/85 Pulse 64 Resp 16 O2 Sat 95 - Lungs Lungs: Clear Ascult./Percussion - Airway Airway: Non-obstructed - Cardiovascular Regular Rate - Mental Status Mental Status: Alert & Oriented, Answers Appropriately - Nausea Vomiting Nausea Vomiting: Not Present - Hydration Hydration: NPO, Has not voided - Discharge PostOp Status: Transfer Patient to floor
--- NOTE | 2018-07-03 18:10 | Internal Med Progress Note ---
Hospitalist Progress Note - Encounter Date of Encounter: 07/03/18 Time of Encounter: 18:07 - Subjective Interval History: Pt denies fever or chills. He denies N/V or diarrhea. He does have a colostomy. He denies CP or SOB. He does report epigastric discomfort. - Exam Vitals: Temp Pulse Resp BP Pulse Ox 98.4 F 73 16 120/71 96 07/03/18 13:31 07/03/18 13:31 07/03/18 13:31 07/03/18 13:31 07/03/18 13:31 Exam: General appearance: Present: A&O X 3, no acute distress Exam: - Head Head exam: Present: atraumatic, normocephalic - Eye Eye exam: Present: PERRL, conjuntiva pink, sclera anicteric Pupils: Present: PERRL - Neck Neck exam general surgery: Present: supple, trachea midline. Absent: lymph adenopathy - Respiratory Respiratory exam: Present: CTAB. Absent: accessory muscle use, rales, rhonchi, wheezes - Cardiovascular Cardiovascular exam: Present: RRR, +S1, +S2. Absent: diastolic murmur, gallop, rubs, systolic murmur - GI/Abdominal GI/Abdominal exam: Present: normal bowel sounds, soft, no peritoneal signs. Absent: distended Additional comments: positive epigastric tenderness - Extremities Exam Extremities exam: Present: warm, radial pulses palpable and symmetrical. Absent: calf tenderness, cyanotic, pedal edema - Neurological Exam Neurological exam: Present: CN II-XII intact, oriented X3, no focal deficits. Absent: pronater drift, facial droop, speech deficit - Skin Skin exam: Present: dry, intact - Assessment and Plan (1) Intrahepatic bile duct dilation Current Visit: Yes Status: Acute Assessment and Plan: Pt has hx of dilated PD. GI consulted due to MRI showing 1.3 cm ampullary nodule. Pt is s/p EUS/ERCP nodule biopsied and sent for path review. (2) Upper abdominal pain Current Visit: No Status: Acute Assessment and Plan: Likely due to above PRN pain control. GI consulted and following. s/p scope and waiting further recommendations from GI. (3) Vomiting Current Visit: No Status: Acute Assessment and Plan: Zofran PRN (4) Crohn's disease of intestine Current Visit: No Status: Acute Assessment and Plan: Pt states he has hx of crohn's but GI documenting UC. UC documented in past medical history GI consulted to see. (5) Chronic pain Current Visit: Yes Status: Acute Assessment and Plan: Methadone dose resumed. (6) Substance abuse Current Visit: Yes Status: Acute Assessment and Plan: Pt's urine drug tox screen + for opiates, cocaine, THC, and meth. Pt is not forth coming about is recreational drug use but he did eventually admit to cocaine use. Cessation strongly advised. (7) Tobacco abuse disorder Current Visit: No Status: Chronic Assessment and Plan: Cessation strongly advised DVT Prophylaxis: SCD - Summary of Assessment and Plan Summary of Assessment and Plan: History of present illness: Dr. Lloyd Mr. Schafer is a 53 year old male with past medical history of severe crohn's diagnosed at 10years of age, multiple bowel surgeries due to crohn's, smoker, ostomy. Pt presents with 2-3 day history of eigastric pain. Reports N/V but denies fever or chills. He denies history of liver disease, hepatitis that he is aware of. He rates pain 8/10. Pt reports significant weight loss over the years. - Time Spent with Patient Total time spent is greater than 50% in coordination of care (as documented) at patient's floor/unit and/or counseling patient: less than 15 minutes Plan of Care Discussed with: patient Internal Medicine: Result - Labs CBC & Chem 7: 07/02/18 06:33 07/02/18 06:33 Consult Discharge Plan - Plan Referrals: NONE,PCP [Primary Care Provider] - (3) Vomiting Qualifiers: Qualified Code(s): R11.10 - Vomiting, unspecified (4) Crohn's disease of intestine Qualifiers: Digestive disease complication type: other complication Qualified Code(s): K50.918 - Crohn's disease, unspecified, with other complication
[2018-07-04 06:24] LABS: Basophils % 0.1 %; Eosinophils % 0.3 %; Hematocrit 35.7 % (37.5-50.1); Hemoglobin 11.9 g/dL (12.9-16.9); Immature Granulocytes % 0.4 % (0-4); Lymphocytes # 1.2 K/mcL (0.6-4.6); Lymphocytes % 8.8 %; Mean Corpuscular HGB Conc 33.3 g/dL (31.6-35.5); Mean Corpuscular Volume 87.1 fL (83.0-100.0); Mean Platelet Volume 8.8 fL (9.4-12.4); Monocytes % 7.1 %; Neutrophils # 11.6 K/mcL (1.6-8.9); Platelet Count 206 K/mcL (140-400); Red Cell Distribution Width 13.9 % (11.5-14.5); Segmented Neutrophils % 83.3 %
[2018-07-04 07:22] LABS: BUN/Creatinine Ratio 19 (6-26); Blood Urea Nitrogen 15 mg/dL (6-20); Calcium 8.7 mg/dL (8.6-10.3); Carbon Dioxide 23 mEq/L (23-29); Chloride 102 mEq/L (98-107); Glucose 94 mg/dL (70-105); Osmolality,Calculated 275 (280-300); Potassium 3.9 mEq/L (3.5-5.1); Sodium 132 mEq/L (136-145); eGFR For Non-African Americans > 60 (> 60)
[2018-07-04] MEDS: Methadone Oral Concentrate 50 MG/5 ML UDC PO SCH (08:26)
--- NOTE | 2018-07-04 10:06 | Gastroenterology Progress Note ---
<Ronald Zhou - Last Filed: 07/04/18 10:04> Date of Encounter: 07/04/18 Time of Encounter: 09:25 - Assessment and plan (1) Intrahepatic bile duct dilation Current Visit: Yes Status: Acute Assessment and plan: Pt has history of dilated PD. MRI shows a 1.3 cm ampullary nodule. Patient underwent EGD with ampullary biopsies yesterday, no other intervention was performed He says that his pain has otherwise improved as of today We have no further inpatient recommendations at this time We will follow-up with the patient as an outpatient for review of pathology in 2-3 weeks (2) Crohn disease Current Visit: Yes Status: Acute Assessment and plan: s/p resection, CT does not show any symptoms of active crohns disease. Qualifiers: Gastrointestinal tract location: large intestine Digestive disease complication type: unspecified complication Qualified Code(s): K50.119 - Crohn's disease of large intestine with unspecified complications - Time Spent With Patient Total time spent is greater than 50% in coordination of care (as documented) at patient's floor/unit and/or counseling patient: - Subjective Interval history: The patient is resting comfortably in bed at time of examination. He says that his pain has completely resolved at this time. He has no acute complaints at this time. - Constitutional Vitals: Temp Pulse Resp BP Pulse Ox 98.8 F 80 15 121/72 95 07/04/18 07:35 07/04/18 07:35 07/04/18 07:35 07/04/18 07:35 07/04/18 07:35 Exam: Gen: Vitals noted. No acute distress. Thin appearing Eyes: anicteric sclerae, moist conjunctivae; no lid-lag; Pupils equal and reactive to light HENT: Atraumatic; oropharynx clear with moist mucous membranes and no mucosal ulcerations; normal hard and soft palate Neck: Trachea midline; supple, no thyromegaly or lymphadenopathy Cardiac: RRR, no murmur, +S1/S2 Pulmonary: CTA bilaterally, no wheezes, rales or rhonchi, equal chest expansion Abdomen: soft, nontender, no guarding. Ostomy noted, small amount of yellow stool. No masses or hepatosplenomegaly MSK: ROM intact, no joint swelling noted Extremities: no BLE edema, nontender calf, no cyanosis or clubbing Skin: Normal temperature, turgor and texture; no rash, ulcers or subcutaneous nodules Neuro: moves all extremities, no focal deficits. Psych: Appropriate mood and behavior. A&Ox3 Results - Labs CBC & Chem 7: 07/04/18 05:53 07/04/18 05:53 Labs: Last Result ESR 24 mm/hr (0-10) H 07/01/18 14:03 Calcium 8.7 mg/dL (8.6-10.3) 07/04/18 05:53 Urine Opiates Screen Positive ng/mL (Vpvbew=705) H 07/02/18 03:03 Entire Visit Hgb 11.9 g/dL (12.9-16.9) L 07/04/18 05:53 Hct 35.7 % (37.5-50.1) L 07/04/18 05:53 Total Bilirubin 0.4 mg/dL (0.3-1.0) 07/01/18 14:03 AST 27 Units/L (13-39) 07/01/18 14:03 ALT 22 Units/L (7-52) 07/01/18 14:03 Lipase 23 Units/L (11-82) 07/01/18 14:03 Consult Discharge Plan - Plan Instructions: Constipation (GEN), Crohn Disease (GEN) Referrals: Ryan Chavez MD [Partnered Physician] - 07/26/18 10:00 am (You will receive a new patient packet in the mail. Please fill it out and bring it with you along with a photo ID, insurance card and any medications you are on. If you need to cancel, please give a 24 hour notice. Thank you) <Layla Andrade - Last Filed: 07/04/18 17:08> Date of Encounter: 07/04/18 Time of Encounter: 13:00 - Time Spent With Patient Total time spent is greater than 50% in coordination of care (as documented) at patient's floor/unit and/or counseling patient: - Constitutional Vitals: Temp Pulse Resp BP Pulse Ox 99.5 F 70 16 115/69 93 07/04/18 15:43 07/04/18 15:43 07/04/18 15:43 07/04/18 15:43 07/04/18 15:43 Results - Labs CBC & Chem 7: 07/04/18 05:53 07/04/18 05:53 Labs: Last Result ESR 24 mm/hr (0-10) H 07/01/18 14:03 Calcium 8.7 mg/dL (8.6-10.3) 07/04/18 05:53 Urine Opiates Screen Positive ng/mL (Qhlbmn=309) H 07/02/18 03:03 Entire Visit Hgb 11.9 g/dL (12.9-16.9) L 07/04/18 05:53 Hct 35.7 % (37.5-50.1) L 07/04/18 05:53 Total Bilirubin 0.4 mg/dL (0.3-1.0) 07/01/18 14:03 AST 27 Units/L (13-39) 07/01/18 14:03 ALT 22 Units/L (7-52) 07/01/18 14:03 Lipase 23 Units/L (11-82) 07/01/18 14:03 - Attending Attestation I examined this patient and my medical decision-making was reviewed with the Resident Physician. I agree with the documented findings, disposition and treatment plan as described except to the extent set forth below. Patient seen abdominal pain much improved on examination abdomen is soft. Assessment: Patient with the periampullary nodule/polypoid lesion,status post biopsy. Rec: follow up with GI as an outpatient
[2018-07-04] MEDS: Acetaminophen 325 MG TABLET PO PRN (13:34)
--- NOTE | 2018-07-04 15:22 | Discharge Summary ---
- NOTES TO OUTPATIENT PROVIDER Notes to Outpatient Provider: PCP in 5 to 7 days Orders not resulted at time of discharge: Pending orders 07/03/18 14:09 Surgical Pathology [PTH] Routine Date of Encounter: 07/04/18 Time of Encounter: 15:20 - Discharge Diagnosis (1) Intrahepatic bile duct dilation Priority: Primary Status: Acute Assessment and Plan: Pt has hx of dilated PD. GI consulted due to MRI showing 1.3 cm ampullary nodule. Pt is s/p EUS/ERCP nodule biopsied and sent for path review. Pain improved. Per GI no further recommendations at this time. (2) Upper abdominal pain Priority: Primary Status: Acute Assessment and Plan: Likely due to above PRN pain control. GI consulted and following. s/p scope and no further recommendations from GI at this time. Follow up with PCP out pt (3) Vomiting Priority: Secondary Status: Acute Assessment and Plan: Zofran PRN Qualifiers: Qualified Code(s): R11.10 - Vomiting, unspecified (4) Crohn's disease of intestine Priority: Secondary Status: Acute Assessment and Plan: Pt states he has hx of crohn's but GI documenting UC. UC documented in past medical history GI consulted to see. Qualifiers: Digestive disease complication type: other complication Qualified Code(s): K50.918 - Crohn's disease, unspecified, with other complication (5) Chronic pain Priority: Secondary Status: Acute Assessment and Plan: On Methadone Qualifiers: Qualified Code(s): G89.29 - Other chronic pain (6) Substance abuse Priority: Secondary Status: Acute Assessment and Plan: Pt's urine drug tox screen + for opiates, cocaine, THC, and meth. Pt is not forth coming about is recreational drug use but he did eventually admit to cocaine use. Cessation strongly advised. (7) Tobacco abuse disorder Priority: Secondary Status: Chronic Assessment and Plan: Cessation strongly advised Hospital course: History of present illness: Dr. Roberts Mr. Schafer is a 53 year old male with past medical history of severe crohn's diagnosed at 10years of age, multiple bowel surgeries due to crohn's, smoker, ostomy. Pt presents with 2-3 day history of epigastric pain. Reports N/V but denies fever or chills. He denies history of liver disease, hepatitis that he is aware of. He rates pain 8/10. Pt reports significant weight loss over the years. In ED WBC 4.0, Hgb 11.3, plt 8.7, Na 139, BUN 19, Cr 1.13. Lipase 23. Urine analysis negative for signs of infection. Discharge discussed with: patient - Time Spent with Patient Total time spent providing and/or coordinating discharge services: Greater than 30 minutes - Discharge Medications Home Medications: Colostomy Bags [New Image Drainable Pouch] 1 each MC DAILY 10 Days #10 each 06/28/18 [Rx] Ostomy Adhesive [Stomahesive] 56.7 gm MC DAILY 10 Days #10 paste..g. 06/28/18 [Rx] Methadone Oral Concentrate [Methadone] 85 mg PO DAILY 07/02/18 [History] Allergies/Adverse Reactions: Allergy/AdvReac Type Severity Reaction Status Date / Time sulfamethoxazole Allergy Rash Verified 06/28/18 15:55 [From Bactrim] trimethoprim [From Bactrim] Allergy Rash Verified 06/28/18 15:55 Date of admission: 07/01/18 16:30 Primary care physician: PCP NONE Consults: 07/01/18 16:13 Consult to Gastroenterology [CONS] Stat Consulting Provider: Gastroenterology [facility] Reason for Consult: intrahepatic/extrahepatic bile duct dilitation Time Notified: 16:14 Call Completed: Yes 07/01/18 18:28 Consult to Radiology Physician Assistant [CONS] Routine Reason for SW Consult: evaluate safety of home on discharge Discharging clinician: Eladia Roberts Anticipated date of discharge: 07/04/18 - Constitutional Vitals: Temp Pulse Resp BP Pulse Ox 99.0 F 74 15 124/69 93 07/04/18 10:40 07/04/18 10:40 07/04/18 10:40 07/04/18 10:40 07/04/18 10:40 General appearance: Present: A&O X 3, no acute distress Exam: General appearance: Present: A&O X 3, no acute distress Exam: - Head Head exam: Present: atraumatic, normocephalic - Eye Eye exam: Present: PERRL, conjunctiva pink, sclera anicteric Pupils: Present: PERRL - Neck Neck exam general surgery: Present: supple, trachea midline. Absent: lymphadenopathy - Respiratory Respiratory exam: Present: CTAB. Absent: accessory muscle use, rales, rhonchi, wheezes - Cardiovascular Cardiovascular exam: Present: RRR, +S1, +S2. Absent: diastolic murmur, gallop, rubs, systolic murmur - GI/Abdominal GI/Abdominal exam: Present: normal bowel sounds, soft, no peritoneal signs. Absent: distended Additional comments: positive epigastric tenderness - Extremities Exam Extremities exam: Present: warm, radial pulses palpable and symmetrical. Absent: calf tenderness, cyanotic, pedal edema - Neurological Exam Neurological exam: Present: CN II-XII intact, oriented X3, no focal deficits. Absent: pronater drift, facial droop, speech deficit - Skin Skin exam: Present: dry, intact - Patient Status Disposition: Home, Self-Care Condition: Good Overall status at discharge: patient is back to baseline - Discharge Instructions Follow Up With: NONE,PCP [Primary Care Provider] - - Diet and Activity Activity: increase activity as tolerated Diet: advance to your usual diet
[2018-07-04 15:43] VITALS: BP 115/69
== END 2018-07-04 18:35 | disposition home or self-care (01) ==
LOC: EMEROOARM 12:52 → 3ANU 12:52
PROVIDERS: ADMIT Internal Medicine; ATTEND Internal Medicine
PROC: ENDOEBX (2018-07-03 17:00)

== ENCOUNTER 2019-08-28 16:37 | Observation (INO) ==
[2019-08-28] MEDS ORDERED: 0.9 % Sodium Chloride 1,000 ML IVC ONE (16:44)
[2019-08-28] MEDS ORDERED: Isovue-370 500 ML BOTTLE IVP ONE (16:44)
[2019-08-28 17:33] LABS: Mean Corpuscular HGB Conc 31.7 g/dL (31.6-35.5); Mean Corpuscular Volume 91.5 fL (83.0-100.0); Mean Platelet Volume 9.1 fL (9.4-12.4); Platelet Count 149 K/mcL (140-400); Red Blood Count 4.48 M/mcL (4.19-5.50); Red Cell Distribution Width 13.4 % (11.5-14.5); White Blood Count 4.3 K/mcL (4.3-11.1)
[2019-08-28 17:50] LABS: BUN/Creatinine Ratio 15 (6-26); Blood Urea Nitrogen 23 mg/dL (6-20); Calcium 9.8 mg/dL (8.6-10.3); Carbon Dioxide 28 mEq/L (23-29); Chloride 104 mEq/L (98-107); Glucose 116 mg/dL (70-105); Osmolality,Calculated 289 (280-300); Sodium 137 mEq/L (136-145); eGFR For African Americans 56 (> 60); eGFR For Non-African Americans 47 (> 60)
[2019-08-28] MEDS ORDERED: Tdap (Boostrix) Vaccine 0.5 ML SYRINGE IM ONE (21:40)
[2019-08-28] MEDS ORDERED: Naloxone 0.4 MG/ML INJ IVP PRN (22:03)
[2019-08-28] MEDS ORDERED: Nicotine 2 MG GUM BC PRN (22:03)
[2019-08-28] MEDS ORDERED: Ondansetron ODT 4 MG TAB.RAPDIS SL PRN (22:03)
[2019-08-28] MEDS ORDERED: levoFLOXacin 750 MG/150 ML 750 MG/150 ML BAG IVPB SCH (22:15)
[2019-08-28 22:42] LABS: Troponin I < 0.03 ng/mL (< 0.04)
[2019-08-28] MEDS: MetroNIDAZOLE 500 MG/100 ML 500 MG/100 ML BAG IVPB SCH (23:16)
[2019-08-29 02:03] LABS: Bilirubin,Urine Negative (Negative); Blood,Urine Negative (Negative); Clarity,Urine Clear (Clear); Color,Urine Yellow (Yellow); Glucose,Urine (UA) Normal (Normal); Ketones,Urine Negative (Negative); Leukocyte Esterase,Urine Small (Negative); Nitrite,Urine Negative (Negative); PH,Urine 5.5 pH Units (5.0-8.0); Protein,Urine Negative (Neg-Trace); Specific Gravity,Urine > 1.030 (1.010-1.025); Urobilinogen,Urine Normal (Normal)
[2019-08-29 02:05] LABS: Bacteria,Urine None Seen per hpf (None-Few); Hyaline Casts,Urine None Seen per lpf (None-Few); RBC,Urine 0-3 per hpf (0-3); Squamous Epithelial Cell,Urine Many per lpf (None-Few); WBC,Urine 15-30 per hpf (0-3)
[2019-08-29 02:12] LABS: Sodium, Urine 44.4 mEq/L
[2019-08-29 02:13] LABS: Amphetamine Screen,Urine Negative ng/mL (Cutoff=1000); Barbiturate Screen,Urine Negative ng/mL (Cutoff=200); Benzodiazepines Screen,Urine Negative ng/mL (Cutoff=200); Cannabinoid Screen,Urine Positive ng/mL (Cutoff = 50); Cocaine Screen,Urine Negative ng/mL (Cutoff= 300); Opiate Screen,Urine Negative ng/mL (Cutoff=300); Phencyclidine Screen,Urine Negative ng/mL (Cutoff=25)
[2019-08-29] MEDS ORDERED: Naloxone 0.4 MG/ML INJ IVP PRN (03:17)
[2019-08-29 03:57] LABS: Basophils % 0.3 %; Eosinophils # 0.1 K/mcL (0.0-0.6); Hematocrit 36.4 % (37.5-50.1); Hemoglobin 11.5 g/dL (12.9-16.9); Immature Granulocytes % 0.3 % (0-4); Lymphocytes # 1.3 K/mcL (0.6-4.6); Lymphocytes % 35.4 %; Mean Corpuscular HGB Conc 31.6 g/dL (31.6-35.5); Mean Corpuscular Volume 91.9 fL (83.0-100.0); Mean Platelet Volume 9.2 fL (9.4-12.4); Monocytes # 0.4 K/mcL (0.0-1.3); Monocytes % 11.3 %; Neutrophils # 1.8 K/mcL (1.6-8.9); Platelet Count 119 K/mcL (140-400); Red Blood Count 3.96 M/mcL (4.19-5.50); Red Cell Distribution Width 13.5 % (11.5-14.5); Segmented Neutrophils % 49.7 %; White Blood Count 3.6 K/mcL (4.3-11.1)
[2019-08-29 04:04] LABS: Prothrombin Time 11.4 Seconds (9.4-12.1)
[2019-08-29 04:17] LABS: Alanine Aminotransferase 26 Units/L (7-52); Albumin 3.5 g/dL (3.5-5.7); Albumin/Globulin Ratio 1.3 (1.1-2.2); Alkaline Phosphatase 73 Units/L (34-104); Aspartate Amino Transferase 28 Units/L (13-39); BUN/Creatinine Ratio 16 (6-26); Bilirubin,Total 0.4 mg/dL (0.3-1.0); Blood Urea Nitrogen 16 mg/dL (6-20); Calcium 8.7 mg/dL (8.6-10.3); Carbon Dioxide 25 mEq/L (23-29); Chloride 110 mEq/L (98-107); Globulin 2.7 g/dL (2.4-3.5); Glucose 76 mg/dL (70-105); Osmolality,Calculated 282 (280-300); Phosphorous 4.1 mg/dL (2.7-4.5); Potassium 3.9 mEq/L (3.5-5.1); Sodium 136 mEq/L (136-145); Total Protein 6.2 g/dL (6.4-8.9); eGFR For African Americans > 60 (> 60); eGFR For Non-African Americans > 60 (> 60)
[2019-08-29] MEDS: MetroNIDAZOLE 500 MG/100 ML 500 MG/100 ML BAG IVPB SCH (07:53)
[2019-08-29] MEDS ORDERED: Nicotine 14 MG PATCH.TD24 TD SCH (09:00)
[2019-08-29 10:17] VITALS: BP 125/74
[2019-08-29] MEDS ORDERED: Methadone Oral Concentrate 50 MG/5 ML UDC PO SCH (10:45)
[2019-08-29] MEDS ORDERED: Ampicillin/Sulbactam 3,000 MG in 0.9 % Sodium Chloride Mini Bag 100 ML IVPB SCH (12:00)
[2019-09-02 21:12] LABS: HCV Quant Log 6.34 log IU/mL
[2019-09-03 11:09] LABS: HCV Quant Interpretation DETECTED (Not Detected)
== END 2019-08-29 13:23 | disposition home or self-care (01) ==
LOC: EMEROOARM 16:37 → 3ANU 16:37
PROVIDERS: ADMIT Family Medicine; ATTEND Family Medicine

== ENCOUNTER 2019-09-09 18:02 | Observation (INO) ==
[2019-09-09] MEDS ORDERED: Morphine Sulfate 2 MG/ML SYRINGE IVP ONE ×2 (18:28→21:25)
[2019-09-09] MEDS ORDERED: 0.9 % Sodium Chloride 1,000 ML IVC ONE (18:28)
[2019-09-09] MEDS ORDERED: Ondansetron 4 MG/2 ML VIAL IVP ONE (18:28)
[2019-09-09] MEDS ORDERED: Isovue-370 500 ML BOTTLE IVP ONE (19:06)
[2019-09-09 19:07] LABS: Basophils % 0.3 %; Eosinophils # 0.1 K/mcL (0.0-0.6); Eosinophils % 1.7 %; Hematocrit 38.2 % (37.5-50.1); Hemoglobin 12.5 g/dL (12.9-16.9); Immature Granulocytes % 0.2 % (0-4); Lymphocytes # 1.4 K/mcL (0.6-4.6); Mean Corpuscular HGB Conc 32.7 g/dL (31.6-35.5); Mean Corpuscular Hemoglobin 29.6 pg (28.0-33.3); Mean Corpuscular Volume 90.3 fL (83.0-100.0); Mean Platelet Volume 9.4 fL (9.4-12.4); Monocytes # 0.8 K/mcL (0.0-1.3); Neutrophils # 3.4 K/mcL (1.6-8.9); Platelet Count 202 K/mcL (140-400); Red Blood Count 4.23 M/mcL (4.19-5.50); Red Cell Distribution Width 13.8 % (11.5-14.5); Segmented Neutrophils % 58.8 %; White Blood Count 5.7 K/mcL (4.3-11.1)
[2019-09-09 19:27] LABS: Alanine Aminotransferase 27 Units/L (7-52); Albumin 4.2 g/dL (3.5-5.7); Albumin/Globulin Ratio 1.3 (1.1-2.2); Alkaline Phosphatase 85 Units/L (34-104); Aspartate Amino Transferase 26 Units/L (13-39); BUN/Creatinine Ratio 14 (6-26); Bilirubin,Direct 0.2 mg/dL (0.0-0.2); Bilirubin,Indirect 0.6 mg/dL (0.0-1.0); Bilirubin,Total 0.8 mg/dL (0.3-1.0); Blood Urea Nitrogen 19 mg/dL (6-20); Calcium 9.3 mg/dL (8.6-10.3); Carbon Dioxide 29 mEq/L (23-29); Chloride 98 mEq/L (98-107); Globulin 3.3 g/dL (2.4-3.5); Glucose 93 mg/dL (70-105); Lipase 19 Units/L (11-82); Osmolality,Calculated 278 (280-300); Potassium 3.6 mEq/L (3.5-5.1); Sodium 133 mEq/L (136-145); Total Protein 7.5 g/dL (6.4-8.9); eGFR For African Americans > 60 (> 60); eGFR For Non-African Americans 53 (> 60)
[2019-09-09 20:16] LABS: Bilirubin,Urine Negative (Negative); Blood,Urine Negative (Negative); Clarity,Urine Clear (Clear); Color,Urine Yellow (Yellow); Glucose,Urine (UA) Normal (Normal); Ketones,Urine Negative (Negative); Leukocyte Esterase,Urine Negative (Negative); Nitrite,Urine Negative (Negative); Protein,Urine Negative (Neg-Trace); Specific Gravity,Urine 1.019 (1.010-1.025); Urobilinogen,Urine Normal (Normal)
[2019-09-09] MEDS ORDERED: MethylPREDNISolone 40 MG/ML VIAL IVP ONE (21:47)
[2019-09-09] MEDS ORDERED: Piperacillin/Tazobactam 3.375 GM in 0.9 % Sodium Chloride Mini Bag 100 ML IVPB ONE (21:47)
[2019-09-09] MEDS ORDERED: Naloxone 0.4 MG/ML INJ IVP PRN ×2 (23:28→23:34)
[2019-09-09] MEDS ORDERED: 0.9 % Sodium Chloride 1,000 ML IVC SCH (23:30)
[2019-09-09 23:53] LABS: C-Reactive Protein 35 mg/L (Less than 10)
[2019-09-10 00:11] LABS: Troponin I < 0.03 ng/mL (< 0.04)
[2019-09-10 05:51] LABS: INR 1.1; Prothrombin Time 12.4 Seconds (9.4-12.1)
[2019-09-10 05:53] LABS: Hematocrit 33.9 % (37.5-50.1); Immature Granulocytes % 0.3 % (0-4); Lymphocytes # 0.4 K/mcL (0.6-4.6); Lymphocytes % 14.3 %; Mean Corpuscular HGB Conc 32.2 g/dL (31.6-35.5); Mean Corpuscular Hemoglobin 28.8 pg (28.0-33.3); Mean Corpuscular Volume 89.4 fL (83.0-100.0); Mean Platelet Volume 9.6 fL (9.4-12.4); Monocytes # 0.1 K/mcL (0.0-1.3); Monocytes % 1.7 %; Neutrophils # 2.4 K/mcL (1.6-8.9); Platelet Count 159 K/mcL (140-400); Red Blood Count 3.79 M/mcL (4.19-5.50); Red Cell Distribution Width 13.3 % (11.5-14.5); Segmented Neutrophils % 83.7 %
[2019-09-10 05:55] LABS: Hemoglobin 10.9 g/dL (12.9-16.9); White Blood Count 2.9 K/mcL (4.3-11.1)
[2019-09-10 06:03] LABS: BUN/Creatinine Ratio 17 (6-26); Blood Urea Nitrogen 18 mg/dL (6-20); Calcium 8.4 mg/dL (8.6-10.3); Carbon Dioxide 24 mEq/L (23-29); Chloride 106 mEq/L (98-107); Glucose 100 mg/dL (70-105); Magnesium 2.2 mg/dL (1.6-2.6); Osmolality,Calculated 284 (280-300); Phosphorous 3.7 mg/dL (2.7-4.5); Potassium 4.4 mEq/L (3.5-5.1); Sodium 136 mEq/L (136-145); eGFR For African Americans > 60 (> 60); eGFR For Non-African Americans > 60 (> 60)
[2019-09-10] MEDS: MethylPREDNISolone 40 MG/ML VIAL IVP SCH (08:57)
[2019-09-10] MEDS ORDERED: Methadone Oral Concentrate 50 MG/5 ML UDC PO SCH (12:21)
[2019-09-10] MEDS ORDERED: 0.9 % Sodium Chloride 1,000 ML IVC SCH (16:00)
[2019-09-10] MEDS: *HR* Heparin 5,000 UNIT/ML VIAL SQ SCH (16:57)
[2019-09-11] MEDS: *HR* Heparin 5,000 UNIT/ML VIAL SQ SCH ×2 (05:11→18:41)
[2019-09-11 06:00] LABS: Basophils % 0.2 %; Eosinophils % 0.3 %; Hematocrit 34.3 % (37.5-50.1); Hemoglobin 11.1 g/dL (12.9-16.9); Immature Granulocytes % 0.5 % (0-4); Lymphocytes # 1.5 K/mcL (0.6-4.6); Lymphocytes % 24.5 %; Mean Corpuscular HGB Conc 32.4 g/dL (31.6-35.5); Mean Corpuscular Volume 89.6 fL (83.0-100.0); Mean Platelet Volume 9.7 fL (9.4-12.4); Monocytes # 0.4 K/mcL (0.0-1.3); Monocytes % 7.1 %; Neutrophils # 4.2 K/mcL (1.6-8.9); Platelet Count 167 K/mcL (140-400); Red Blood Count 3.83 M/mcL (4.19-5.50); Red Cell Distribution Width 13.2 % (11.5-14.5); Segmented Neutrophils % 67.4 %
[2019-09-11 06:02] LABS: White Blood Count 6.2 K/mcL (4.3-11.1)
[2019-09-11 06:14] LABS: BUN/Creatinine Ratio 18 (6-26); Blood Urea Nitrogen 17 mg/dL (6-20); Calcium 8.9 mg/dL (8.6-10.3); Carbon Dioxide 26 mEq/L (23-29); Chloride 107 mEq/L (98-107); Glucose 81 mg/dL (70-105); Osmolality,Calculated 287 (280-300); Potassium 3.9 mEq/L (3.5-5.1); Sodium 138 mEq/L (136-145); eGFR For African Americans > 60 (> 60); eGFR For Non-African Americans > 60 (> 60)
[2019-09-11] MEDS ORDERED: Methadone Oral Concentrate 50 MG/5 ML UDC PO SCH (09:15)
[2019-09-11] MEDS: MethylPREDNISolone 40 MG/ML VIAL IVP SCH (09:42)
[2019-09-11] MEDS ORDERED: Lidocaine -MPF 2% 2 ML VIAL ONE (12:05)
[2019-09-11 18:00] VITALS: BP 136/74
== END 2019-09-11 19:25 | disposition home or self-care (01) ==
LOC: EMEROOARM 18:02 → 3ANU 18:02 → SUATTDRO 22:28 → 3ANU 22:56
PROVIDERS: ADMIT Internal Medicine; ATTEND Internal Medicine
PROC: ENDOCBD (2019-09-11 13:25)